=== PATIENT | male | born 1970 | race Caucasian/White ===

== ENCOUNTER 2022-03-26 10:55 | Outpatient (REF) | payer OTHER, SELFPAY ==
[2022-03-26 12:38] LABS: Hematocrit 43.2 % (42.0-52.0); Hemoglobin 14.9 g/dl (14.0-18.0); Mean Corpuscular HGB Conc 34.5 g/dl (31.0-36.0); Mean Corpuscular Hemoglobin 30.5 pg (27.0-33.0); Mean Corpuscular Volume 88.5 fL (80.0-98.0); Mean Platelet Volume 9.4 fL (9.4-12.4); Platelet Count 185 X10*3/uL (160-400); Red Blood Count 4.88 X10*6/uL (4.60-5.80); Red Cell Distribution Width 12.7 % (11.0-16.0); White Blood Count 5.6 X10*3/uL (4.8-10.8)
[2022-03-26 13:01] LABS: Alanine Aminotransferase 28 U/L (0-40); Albumin Level 4.5 g/dL (3.5-5.0); Alkaline Phosphatase 79 U/L (39-117); Anion Gap 12 (12-20); Aspartate Amino Transferase 28 U/L (5-37); Bilirubin Total 0.8 mg/dL (0.0-1.0); Blood Urea Nitrogen 13 mg/dL (9-16); Calcium 10.2 mg/dL (8.4-10.2); Carbon Dioxide 28 mmol/L (22-29); Chloride 102 mmol/L (96-108); Estimated Glomerular Filt Rate > 60; Glucose Random 109 mg/dL (60-115); Potassium 5.1 mmol/L (3.3-5.1); Sodium 137 mmol/L (135-145); Total Protein 7.5 g/dL (6.5-8.0)
== END 2022-03-26 10:56 | disposition home or self-care (01) ==
LOC: HO.LAB 10:55
PROVIDERS: PCP Nurse Practitioner Family; Referring Provider Nurse Practitioner Family; Visit Provider Nurse Practitioner Family
DX: K21.9 Gastro-esophageal reflux disease without esophagitis (principal); Z12.11 Encounter for screening for malignant neoplasm of colon
CPT/HCPCS: 36415; 80053; 85027

== ENCOUNTER 2022-11-26 07:20 | Day surgery (SDC) | payer OTHER, SELFPAY ==
--- NOTE | 2022-11-25 09:42 | HO.ANESPROP2 ---
HPI - Anesthesia Eval Consult details Narrative: 52yo M for Colonoscopy PMFSH Active Problems Active Problems: All Active Problems (Updated 11/19/22 @ 12:49 by Mima Go RN) Screening for colon cancer (Acute) Physical exam (Acute) HTN (hypertension) (Acute) Past Medical History Medical History Acid reflux HTN (hypertension) Surgical History Surgical History History of prostate surgery Hx of lumbar discectomy Social History Social History Housing: House Patient Tobacco Use Status: Never used Tobacco e-Cigarette/Vaping Use: Never Used Second Hand Smoke Exposure: No service: No Current occupational status: employed Current occupation: [employer] Current occupational exposures/hazards: Yes Cognitive needs: No Hearing needs: No Vision needs: No Meds Allergies Allergy/AdvReac Type Severity Reaction Status Date / Time No Known Allergies Allergy Verified 06/01/22 12:26 Home Medications Medication Instructions Recorded Confirmed Last Taken Type sildenafil 25 mg tablet 25 mg PO DAILY PRN Erectile 12/07/21 11/26/22 Unknown History Dysfunction Exam Exam Date and Time: November 25, 2022 0942 Assessment and Plan Assessment Anesthesia Assessment: Chart Reviewed
[2022-11-26 07:29] VITALS: BMI 26.8
[2022-11-26 07:33] VITALS: BP 141/89; PULSE 82; RESP 16; TEMP 36.8; O2SAT 97
[2022-11-26] MEDS: Lactated Ringers 1,000 ML 100 ML IVCONT (07:47)
--- NOTE | 2022-11-26 08:51 | MHC.SHP ---
Pre-Procedural Eval Section A Date of Service: 11/26/22 Section B Chief Complaint: screening Details of Present Illness: 52 y.o M at average risk for CRC here for index screening colo. Relevant Family History (Specify if Yes): No Present Medications: see Short Stay Collaborative assessment Medical History: No relevant PMH History of Previous Operations: No relevant previous surgery Allergies: Allergies Allergy/AdvReac Type Severity Reaction Status Date / Time No Known Allergies Allergy Verified 06/01/22 12:26 Review of Systems Review of Systems Comment: 10 point ROS negative except as noted above Exam Exam Comment: Gen appear: No acute distress, well nourished HEENT: no icterus Chest: No overt resp distress Abd: soft, nontender, nondistended Psych: Stable affect, answering questions appropriately Neuro: A/Ox3 noted to move all extremities spontaneously Ext: no peripheral edema Plan Diagnosis/Plan: Unchanged I have reviewed the history and physical and performed a pertinent physical examination on my patient. No changes have occurred unless specified. Time Spent With Patient Time: Total time managing care of this patient today ____ minutes.
--- NOTE | 2022-11-26 08:53 | P.OP_ITS ---
Operative Note Operative Note Date of Service: 11/26/22 Narrative: Procedure: Colonoscopy Indication: Screening Endoscopist: Alisia Veloz MD Anesthesia Provider: Dr Yoanna Griggs Anesthesia type: MAC Instrument: Olympus [id number]-H190L Consent: Indication, risks vs benefits, and alternatives were discussed with the patient who gave written informed consent to proceed. EKG, pulse, pulse oximetry and blood pressure were monitored throughout the procedure. Please see anesthesia flowsheet. Procedure: The patient was brought to the procedure room and placed in the left lateral decubitus position. IV medications were administered by the anesthesia provider in attendance. A digital rectal exam was performed which was normal. The colonoscope was then inserted through the anus and advanced through the colon to the cecum at 80 cm. Appendiceal orifice and ileocecal valve were identified. Mucosa was carefully examined under high definition white light as the instrument was slowly withdrawn in a retrograde panoramic fashion. Retroflexion was performed in ascending colon and rectum. The procedure was not difficult. There were no immediate obvious complications. The quality of the prep was BBPS: 2+2+3 = adequate Withdrawal time 20 minutes. Limitations: No limitations. Findings: Mucosa: Normal to cecum. Protruding lesions: * 2 sessile polyp of size 2-4 mm in ascending colon. Cold snare polypectomy was performed. The polyps were completely removed and retrieved. * 1 sessile polyp of size 2 mm in transverse colon. Cold snare polypectomy was performed. The polyp was completely removed and retrieved. * 2 sessile polyp of size 4-6 mm in sigmoid colon. Cold snare polypectomy was performed. The polyps were completely removed and retrieved. * Medium internal hemorrhoids without stigmata of recent bleeding. Excavated lesions: * Few small mouthed diverticula in whole colon. Impression: 1. Normal colon mucosa 2. Total of 5 polyps removed from ascending, transverse, and sigmoid colon. 3. Internal hemorrhoids 4. Diverticulosis Recommendations: - Follow path results. - Repeat colonoscopy in 3 years if all polyps are adenomas or sessile serrated otherwise 5-7 years.
[2022-11-26 09:42] VITALS: BP 101/78; PULSE 76; RESP 18; TEMP 36.1; O2SAT 95
[2022-11-26 09:57] VITALS: BP 115/82; PULSE 62; RESP 16; TEMP 36.1; O2SAT 97
== END 2022-11-26 10:24 | disposition home or self-care (01) ==
PROVIDERS: PCP Nurse Practitioner Family; Visit Provider Internal Medicine
PROC: 0DJD8ZZ Inspection of Lower Intestinal Tract, Via Natural or Artificial Opening Endoscopic (ICD-10-PCS; CPT 45378; principal; 2022-11-26 08:30)
DX: Z12.11 Encounter for screening for malignant neoplasm of colon (principal); D12.2 Benign neoplasm of ascending colon; D12.3 Benign neoplasm of transverse colon; K63.5 Polyp of colon; K57.30 Diverticulosis of large intestine without perforation or abscess without bleeding; K64.8 Other hemorrhoids; K21.9 Gastro-esophageal reflux disease without esophagitis; I10 Essential (primary) hypertension; Z79.899 Other long term (current) drug therapy
CPT/HCPCS: 45385; 88305

== ENCOUNTER → 2022-12-10 07:39 | Outpatient (BNVA) | payer OTHER, SELFPAY | PROVIDERS: PCP Nurse Practitioner Family; Referring Provider Nurse Practitioner Family; Visit Provider Nurse Practitioner Family | DX: Z13.89 Encounter for screening for other disorder (principal) ==

== ENCOUNTER 2023-01-06 09:14 | Outpatient (REF) | payer OTHER, SELFPAY ==
[2023-01-08 07:53] LABS: Lyme Blot 2.84 index
[2023-01-12 09:34] LABS: Lyme Abs Screen POSITIVE
[2023-01-12 09:38] LABS: 18 KD (IgG) Band NON-REACTIVE; 23 KD (IgG) Band NON-REACTIVE; 23 KD (IgM) Band REACTIVE; 28 KD (IgG) Band NON-REACTIVE; 30 KD (IgG) Band NON-REACTIVE; 39 KD (IgM) Band NON-REACTIVE; 39KD (IgG) Band REACTIVE; 41 KD (IgM) Band NON-REACTIVE; 41KD (IgG) Band NON-REACTIVE; 45 KD (IgG) Band NON-REACTIVE; 58 KD (IgG) Band NON-REACTIVE; 66 KD (IgG) Band NON-REACTIVE; 93 KD (IgG) Band REACTIVE; Lyme IgG Blot Interp NEGATIVE (NEGATIVE); Lyme IgM Blot Interp NEGATIVE (NEGATIVE)
== END 2023-01-06 09:15 | disposition home or self-care (01) ==
LOC: HO.HMGCLDS 09:14
PROVIDERS: PCP Nurse Practitioner Family; Visit Provider Internal Medicine
DX: R76.8 Other specified abnormal immunological findings in serum (principal)
CPT/HCPCS: 36415; 86617; 86618

== ENCOUNTER 2023-01-18 15:02 | Outpatient (REF) | payer OTHER, SELFPAY ==
[2023-01-18 16:35] LABS: Mean Corpuscular HGB Conc 34.9 g/dl (31.0-36.0); Mean Corpuscular Hemoglobin 31.3 pg (27.0-33.0); Mean Corpuscular Volume 89.8 fL (80.0-98.0); Platelet Count 149 X10*3/uL (160-400); Red Blood Count 4.79 X10*6/uL (4.60-5.80); Red Cell Distribution Width 12.8 % (11.0-16.0); White Blood Count 3.7 X10*3/uL (4.8-10.8)
[2023-01-18 16:48] LABS: Alanine Aminotransferase 33 U/L (0-40); Albumin Level 4.5 g/dL (3.5-5.0); Alkaline Phosphatase 91 U/L (39-117); Anion Gap 14 (12-20); Aspartate Amino Transferase 34 U/L (5-37); Bilirubin Direct 0.3 mg/dL (0.0-0.5); Bilirubin Total 1.1 mg/dL (0.0-1.0); Blood Urea Nitrogen 13 mg/dL (9-16); Calcium 9.8 mg/dL (8.4-10.2); Carbon Dioxide 26 mmol/L (22-29); Chloride 104 mmol/L (96-108); Estimated Glomerular Filt Rate > 60; Glucose Random 103 mg/dL (60-115); Potassium 4.5 mmol/L (3.3-5.1); Sodium 139 mmol/L (135-145); Total Protein 7.4 g/dL (6.5-8.0)
[2023-01-18 17:07] LABS: Erythrocyte Sedimentation Rate 6 MM/HR (0-15)
== END 2023-01-18 15:03 | disposition home or self-care (01) ==
LOC: HO.HMGCLDS 15:02
PROVIDERS: PCP Nurse Practitioner Family; Visit Provider Internal Medicine
DX: M31.6 Other giant cell arteritis (principal)
CPT/HCPCS: 36415; 80048; 80076; 85027; 85652; 86140

== ENCOUNTER → 2023-01-25 07:14 | Outpatient (BNVA) | payer OTHER, SELFPAY | PROVIDERS: PCP Internal Medicine; Visit Provider Student in an Organized Health Care Education/Training Program | DX: Z13.89 Encounter for screening for other disorder (principal) ==

== ENCOUNTER 2023-01-25 08:31 | Outpatient (REF) | payer OTHER, SELFPAY ==
[2023-01-25 11:26] LABS: MANUAL DIFF FLAG NO
[2023-01-25 11:39] LABS: Appearance Urine Turbid; Color Urine Yellow; Glucose Urine UA Negative (Negative); Leukocyte Esterase Urine Negative (Negative); Nitrite Urine Negative (Negative); PH 5.5 (5.0-9.0); Specific Gravity - Urine 1.025 (1.005-1.025); Urine Blood Negative (Negative); Urine Ketones Negative (Negative); Urine Protein Negative (Neg-Trace)
[2023-01-25 11:40] LABS: Basophils Percent Auto 0.3 % (0-2); Eosinophils Percent Auto 0.2 % (0-4); Lymphocytes Absolute Auto 0.9 X10*3/uL (1.2-4.9); Monocytes Absolute Auto 0.5 X10*3/uL (0.1-1.2); White Blood Count 6.4 X10*3/uL (4.8-10.8)
[2023-01-25 11:42] LABS: Bacteria Urine None Seen (None Seen); Hyaline Casts Urine 0-2 /LPF (0-2); RBC Urine 0-2 /HPF (0-2); Squamous Epithelial Cell Urine 0-2 /HPF (0-2); WBC Urine 0-5 /HPF (0-5)
[2023-01-25 11:53] LABS: Alanine Aminotransferase 30 U/L (0-40); Albumin Level 4.1 g/dL (3.5-5.0); Alkaline Phosphatase 76 U/L (39-117); Anion Gap 11 (12-20); Aspartate Amino Transferase 22 U/L (5-37); Bilirubin Total 0.8 mg/dL (0.0-1.0); Blood Urea Nitrogen 21 mg/dL (9-16); C Reactive Protein < 0.10 mg/dL (< or = 0.50); Calcium 9.6 mg/dL (8.4-10.2); Carbon Dioxide 27 mmol/L (22-29); Chloride 107 mmol/L (96-108); Estimated Glomerular Filt Rate > 60; Glucose Random 105 mg/dL (60-115); Potassium 4.4 mmol/L (3.3-5.1); Rheumatoid Factor < 13.0 IU/mL (<15.0); Sodium 141 mmol/L (135-145); Total Protein 6.8 g/dL (6.5-8.0)
[2023-01-25 11:55] LABS: Estimated Average Glucose 114 mg/dL; Hemoglobin A1c % 5.6 %
[2023-01-25 12:24] LABS: Erythrocyte Sedimentation Rate 3 MM/HR (0-15)
[2023-01-25 12:32] LABS: Creatinine Urine 176.79 mg/dL; Total Protein Urine Random 17 mg/dL (<12)
[2023-01-25 14:23] LABS: HBc Num1 0.08 S/CO (0.00-0.79); HBsAGNum1 0.41 S/CO (0.00-0.99); Hepatitis A Antibody IgM 0.51 Index (0-0.79); Hepatitis B Core Antibody Nonreactive (Nonreactive); Hepatitis B Surface Antigen Negative (Negative); ~HepC Num1 0.13 S/CO (0.00-0.79); ~Hepatitis A Antibody IgM Nonreactive (Nonreactive); ~Hepatitis B Surface Antibody NONREACTIVE (Nonreactive); ~Hepatitis C Antibody Nonreactive (Nonreactive)
[2023-01-25 15:16] LABS: Hematocrit 41.2 % (42.0-52.0); Hemoglobin 14.4 g/dl (14.0-18.0); Imm Gran Abs Auto 0.09 X10*3/uL (0.00-0.03); Imm Gran Pct Auto 1.4 % (0.0-0.4); Lymphocytes Percent Auto 13.5 % (20-40); Mean Corpuscular Volume 88.6 fL (80.0-98.0); Mean Platelet Volume 10.2 fL (9.4-12.4); Monocytes Percent Auto 7.5 % (2-11); Neutrophils Percent Auto 77.1 % (45-73); Platelet Count 206 X10*3/uL (160-400); Red Blood Count 4.65 X10*6/uL (4.60-5.80)
[2023-01-26 22:33] LABS: Complement C3 104 mg/dL (82-185)
[2023-01-27 11:49] LABS: IgA 186 mg/dL (47-310); IgG 1157 mg/dL (600-1640); IgM 217 mg/dL (50-300)
[2023-01-27 13:58] LABS: Cyclic Citrullinated Peptide <16 UNITS
[2023-01-27 14:19] LABS: TS Negative Control Passed; TS Panel A 1; TS Panel B 0; TS Positive Control Passed; TSpotTB Negative (Negative)
[2023-01-28 08:53] LABS: Anti Nuclear Antibody Screen NEGATIVE (NEGATIVE)
[2023-01-28 18:44] LABS: Prot Elec - Albumin 4.6 g/dL (3.8-4.8); Prot Elec - Alpha1 0.3 g/dL (0.2-0.3); Prot Elec - Alpha2 0.6 g/dL (0.5-0.9); Prot Elec - Beta 1 0.4 g/dL (0.4-0.6); Prot Elec - Beta 2 0.3 g/dL (0.2-0.5); Prot Elec - Total Protein 7.2 g/dL (6.1-8.1)
[2023-01-29 14:59] LABS: DNAds, Crithidia Antibody Negative (Negative)
[2023-01-31 03:04] LABS: Angiotensin Converting Enzyme 11.7 U/L (9-67)
[2023-01-31 13:09] LABS: Anti DNA DS Antibody <1 IU/mL; Antibody to SS-A Antigen <1.0 NEG AI (<1.0 NEG); Antibody to SS-B Antigen <1.0 NEG AI (<1.0 NEG); Myeloperoxidase Antibody <1.0 AI; Proteinase 3 PR3 Antibodies <1.0 AI; SM/Ribonucleoprotein Ab <1.0 NEG AI (<1.0 NEG); Smith Protein <1.0 NEG AI (<1.0 NEG)
== END 2023-01-25 08:32 | disposition home or self-care (01) ==
LOC: HO.10HDL 08:31
PROVIDERS: Visit Provider Student in an Organized Health Care Education/Training Program
DX: Z11.7 Encounter for testing for latent tuberculosis infection (principal); Z13.1 Encounter for screening for diabetes mellitus; D86.9 Sarcoidosis, unspecified; M32.9 Systemic lupus erythematosus, unspecified; M06.9 Rheumatoid arthritis, unspecified; R51.9 Headache, unspecified; M31.6 Other giant cell arteritis
CPT/HCPCS: 36415; 80053; 81001; 82164; 82784; 83036; 84156; 84165; 85025; 85652; 86021; 86038; 86039; 86140; 86160; 86200; 86225; 86235; 86255; 86334; 86431; 86481; 86704; 86706; 86709; 86803; 87340

== ENCOUNTER 2023-01-27 08:46 | Day surgery (SDC) | payer OTHER, SELFPAY ==
[2023-01-27 09:00] VITALS: BMI 26.5
[2023-01-27 09:07] VITALS: BP 149/94; PULSE 71; RESP 16; TEMP 36.7; O2SAT 97
[2023-01-27] MEDS: Lactated Ringers 1,000 ML 50 ML IVCONT (09:18)
--- NOTE | 2023-01-27 10:55 | P.CONAN_ITS ---
HPI - Anesthesia Eval Consult details Narrative: 52 M for TAB PMFSH Active Problems Active Problems: All Active Problems (Updated 01/25/23 @ 15:00 by Damaso Cannon MD) Giant cell arteritis (Acute) Headache (Acute) Positive Lyme disease serology (Acute) Diverticulosis (Acute) Tubular adenoma (Acute) Screening for colon cancer (Acute) Physical exam (Acute) HTN (hypertension) (Acute) Past Medical History Medical History Acid reflux Diverticulosis HTN (hypertension) Tubular adenoma Family History Family History Brother Brain aneurysm Family history of problems with anesthesia: No Surgical History Surgical History History of prostate surgery Hx of lumbar discectomy History of Problems with Anesthesia: No Social History Social History Household Members: Spouse Household Members Other:: Daughter Housing: House Alcohol intake: current Alcohol intake frequency: holidays/special occasions only Patient Tobacco Use Status: Never used Tobacco e-Cigarette/Vaping Use: Never Used Second Hand Smoke Exposure: No Use of substances other than those prescribed or required for medical reasons: No Are you DNR?: No Advance Directives: No Advance Directives Information Provided: Yes Recently lost weight without trying: No Nutrition Risks: No Nutritional Risk service: No Current occupational status: employed Current occupation: [employer] Current occupational exposures/hazards: Yes Cognitive needs: No Hearing needs: No Vision needs: No Meds Allergies Allergy/AdvReac Type Severity Reaction Status Date / Time No Known Allergies Allergy Verified 01/25/23 13:05 Active Medications: Current Medications Lactated Ringer's (Lr) 1,000 mls @ 50 mls/hr IVCONT .Q20H MIKEY Last Admin: 01/27/23 09:18 Dose: 50 mls/hr Home Medications Medication Instructions Recorded Confirmed Last Taken Type sildenafil 25 mg tablet 25 mg PO DAILY PRN Erectile 12/07/21 01/27/23 Unknown History Dysfunction Exam Exam Date and Time: January 27, 2023 1055 Height,Weight and Vital Signs: Height 5 ft 10 in Weight 185 lb Last Vital Signs Temp 98.0 F 01/27/23 09:07 Pulse 71 01/27/23 09:07 Resp 16 01/27/23 09:07 BP 149/94 H 01/27/23 09:07 Pulse Ox 97 01/27/23 09:07 O2 Del Method 01/27/23 09:07 Airway Mallampati Class: II TM Dist: >3cm Neck ROM: Full Loose/Missing/Broken Teeth: No Assessment and Plan Assessment Anesthesia Assessment: Anesthesia Plan Discussed and Chart Reviewed Final Anesthetic Review Family History of Problems with Anesthesia: No History of Problems with Anesthesia: No NPO: Yes ASA Class: II Final Preanesthetic Review: No Changes in Pt Med Stat, Meds/Allgs Chart Reviewed, Consent Obtained/Reviewed and Anes Risks/Benef Reviewed Patient Risk: Low Procedure Risk: Low Anesthetic Plan Anesthetic Plan: MAC: Disposition: Standard PACU
--- NOTE | 2023-01-27 11:39 | MHC.SHP ---
Pre-Procedural Eval Section A Date of Service: 01/27/23 The patient is an INPATIENT: No Changes since office visit: Yes Patient answered all questions The History & Physical has been completed within 30 days and I have reviewed it.: Yes Section B Chief Complaint: Other giant cell arteritis Allergies: Allergies Allergy/AdvReac Type Severity Reaction Status Date / Time No Known Allergies Allergy Verified 01/25/23 13:05 Plan I have reviewed the history and physical and performed a pertinent physical examination on my patient. No changes have occurred unless specified. Time Spent With Patient Time: Total time managing care of this patient today ____ minutes.
--- NOTE | 2023-01-27 11:40 | W.PM.OPN ---
Operative Note Operative Note Date of Service: 01/27/23 Narrative: Operative note by [facility] Preoperative diagnosis: Giant cell arteritis Postoperative diagnosis: Same Procedure: Right temporal artery biopsy Surgeon:Damaso Cannon M.D. Armhole Presser: None Anesthesia: Local with sedation Specimens: 1 Drains: None Estimated blood loss: Minimal Indications: Very pleasant 52-year-old gentleman with history of temporal headaches and elevated ESR CRP now presents for right temporal artery biopsy. The patient has signed the informed consent after reviewing risks, complications, benefits, and alternatives previously discussed with the patient. The patient was given the opportunity to ask any additional questions or voice any concerns. All questions were answered to the patient's satisfaction. Procedure in detail: Patient was brought to the operating room prior to which a time-out was called for patient identification and site verification. Right temporal region was prepped and draped in the standard surgical fashion approximately a 3 cm incision was carried out anterior to the year. Um taken down through the skin subcu on to the fascial layer. On this was dissected with electrocautery. We were able to easily identify the temporal artery with dissection. Proximal and distal edges were ligated with 3-0 silk. Specimen was then removed. Adequate hemostasis was achieved. Wound was irrigated. Deep layer was reapproximated using 3-0 poly Sorb and finally skin with a 4-0 Monocryl. Exofin was used as a sterile dressing. This note is constructed using voice recognition software. While every effort has been made to ensure accuracy, premium card cancellation clerk errors may have been included. Thank you for allowing me to participate in the care of your patient. Yours sincerely, Damaso Cannon MD, FACS, R.P.V.I.
[2023-01-27 11:45] VITALS: BP 135/78; PULSE 62; RESP 18; TEMP 36.2; O2SAT 96
[2023-01-27 12:00] VITALS: BP 135/78; PULSE 59; RESP 16; O2SAT 97
[2023-01-27] MEDS: Acetaminophen 325 MG TABLET 975 MG PO (12:08)
[2023-01-27 12:15] VITALS: BP 135/83; PULSE 59; RESP 18; O2SAT 98
[2023-01-27 12:30] VITALS: BP 138/93; PULSE 63; RESP 20; TEMP 36.4; O2SAT 96
== END 2023-01-27 13:23 | disposition home or self-care (01) ==
PROVIDERS: PCP Nurse Practitioner Family; Visit Provider Surgery Vascular Surgery
PROC: (CPT 37609; principal; 2023-01-27 10:40)
DX: M31.6 Other giant cell arteritis (principal); R51.9 Headache, unspecified; R79.82 Elevated C-reactive protein (CRP); R70.0 Elevated erythrocyte sedimentation rate; I10 Essential (primary) hypertension; Z79.899 Other long term (current) drug therapy; Z79.52 Long term (current) use of systemic steroids
CPT/HCPCS: 37609; 88305; J0690; J2795; J3010

== ENCOUNTER 2023-02-23 08:39 | Outpatient (REF) | payer OTHER, SELFPAY ==
--- NOTE | ~2023-02-23 | MR_ITS ---
EXAMINATION: MR BRAIN WITHOUT AND WITH CONTRAST CLINICAL INFORMATION: Headache, right eye blurry vision, history of prostate cancer COMPARISON: None TECHNIQUE: Multiplanar multisequence MR imaging of the brain was obtained without and following the administration of 8.5 mL Gadavist intravenous contrast. FINDINGS: There is no acute infarct on diffusion-weighted imaging. There is no intracranial hemorrhage on iron-sensitive imaging. No extra-axial collection or mass effect/herniation. Normal parenchymal signal characteristics. No hydrocephalus. The ventricles are normal in morphology and size. No abnormal parenchymal or extra-axial enhancement. The major flow voids at the skull base are preserved. The midline structures are normal. The cerebellar tonsils are normally positioned. The craniocervical junction is normal. Degenerative changes of the upper cervical spine. Marrow signal is within normal limits. The visualized soft tissues are without significant abnormality. Mild left maxillary sinus mucosal thickening. MR/MR head/brain wo/w con IMPRESSION: Unremarkable contrast enhanced MRI of the brain.
== END 2023-02-23 08:40 | disposition home or self-care (01) ==
LOC: HO.MRI 08:39
PROVIDERS: PCP Nurse Practitioner Family; Visit Provider Student in an Organized Health Care Education/Training Program
DX: R51.9 Headache, unspecified (principal)
CPT/HCPCS: 70553; A9585

== ENCOUNTER → 2023-03-02 12:50 | Outpatient (BNVA) | payer OTHER, SELFPAY | PROVIDERS: PCP Nurse Practitioner Family; Visit Provider Student in an Organized Health Care Education/Training Program | DX: Z13.89 Encounter for screening for other disorder (principal) ==

== ENCOUNTER 2023-06-01 07:59 | Outpatient (REF) | payer OTHER, SELFPAY ==
[2023-06-03 11:58] LABS: Immunoglobulin G Subclass 1 468 mg/dL (382-929); Immunoglobulin G Subclass 2 305 mg/dL (241-700); Immunoglobulin G Subclass 3 39 mg/dL (22-178); Immunoglobulin G Subclass 4 108.2 mg/dL (4-86); Immunoglobulin G Total 936 mg/dL (600-1640)
[2023-06-06 21:33] LABS: Lysozyme, Serum 6.1 mcg/mL (5.0-11.0)
== END 2023-06-01 08:00 | disposition home or self-care (01) ==
LOC: HO.HMGCLDS 07:59
PROVIDERS: Student in an Organized Health Care Education/Training Program; PCP Nurse Practitioner Family; Visit Provider Nurse Practitioner Family
DX: D89.89 Other specified disorders involving the immune mechanism, not elsewhere classified (principal); D86.9 Sarcoidosis, unspecified; I10 Essential (primary) hypertension
CPT/HCPCS: 36415; 80053; 80061; 81003; 82784; 84443; 85025; 85549

== ENCOUNTER 2023-07-07 09:13 | Outpatient (AMB) | payer OTHER, SELFPAY ==
--- NOTE | 2023-07-07 09:18 | MHC.PC.OV ---
Vital Signs 07/07/23 09:20 Height 5 ft 10 in Weight 193 lb 6 oz BMI 27.7 BP 130/78 Blood Pressure Location Lt brachial Position Sitting Pulse 78 Pulse Source Pulse Oximeter Pulse Oximetry (%) 98 Oxygen Delivery Method Room Air Intake Visit Reasons: Transfer Dr Bryant/ [facility] Intake Note: Patient is here today for transfer of care from Dr Bryant. Requesting PE Surgical Aide Required: No Ibm Bpm Developer: Not Required per policy Accompanied by: Self / Same As Patient Allergies No Known Allergies Allergy (Verified 07/24/23 19:54) Medication List - Last Reconciled 07/24/23 by Owen Modi MD cholecalciferol (vitamin D3) 125 mcg PO DAILY lisinopril 5 mg PO DAILY 90 days rosuvastatin (Crestor) 5 mg PO DAILY Tobacco use date assessed: 07/07/23 Dental Screening Dental Screen Date: 07/07/23 Did you have a dental visit in the last 12 months?: Yes Did you have a dental problem in the last 6 months where you did not have access to dental care?: No Was dental information given to patient?: Patient has dentist HPI Transfer Dr Bryant/ [facility] HPI Details 52-year-old male presents to the office to establish care. He is transferring care from another primary care provider in this group. At the walk-in I had diagnosed him with giant cell arteritis. Patient received a temporal artery biopsy, it was not conclusive. Currently on no medications. PENDING SALE TO [facility] Medical History Acid reflux Diverticulosis HTN (hypertension) Tubular adenoma Surgical History History of prostate surgery Hx of lumbar discectomy Family History Brother Brain aneurysm Social History (Updated 07/07/23 @ 09:26 by SHAILESH Corral) Household Members: Spouse Household Members Other:: Daughter Housing: House Alcohol intake: current Alcohol intake frequency: a few times a month Alcohol type: beer Patient Tobacco Use Status: Never used Tobacco e-Cigarette/Vaping Use: Never Used Second Hand Smoke Exposure: No service: No Current occupational status: employed Current occupation: [employer] Current occupational exposures/hazards: Yes Cognitive needs: No Hearing needs: No Vision needs: Yes (glasses) Questionnaire PHQ-9 Over the last 2 weeks, how often have you been bothered by any of the following problems? 1. Little interest or pleasure in doing things: not at all 2. Feeling down, depressed, or hopeless: not at all 3. Trouble falling or staying asleep, or sleeping too much: not at all 4. Feeling tired or having little energy: not at all 5. Poor appetite or overeating: not at all 6. Feeling bad about yourself - or that you are a failure or have let yourself or your family down: not at all 7. Trouble concentrating on things, such as reading the newspaper or watching television: not at all 8. Moving or speaking so slowly that other people could have noticed. Or the opposite - being so fidgety or restless that you have been moving around a lot more than usual: not at all 9. Thoughts that you would be better off or of hurting yourself in some way: not at all Total score: 0 Depression Screening Interpretation: Negative Source: Developed by Drs. Sylvester Rosado, Ofelia Mary, Norman Fry and colleagues, with an educational vasquez from [employer]. Thrive Questionnaire Date Thrive assessed: 07/07/23 I am a: Patient What is your living situation today?: I have a steady place to live Within the past 12 months, did the food you bought not last and you didn't have the money to get more?: Never true Within the past 12 months, did you worry whether your food would run out before you got money to buy more?: Never true Do you have trouble paying for medicines?: No Do you have trouble getting transportation to medical appointments?: No Do you have trouble paying your heating and electricity bill?: No Do you have trouble taking care of your child, family member or friend?: No Do you have trouble with day-to-day activities such as bathing, preparing meals, shopping, managing finances, etc.?: No Are you currently unemployed and looking for a job?: No Are you interested in more education?: No Currently or been in a relationship where the following occur: no concerns reported AUDIT C Alcohol Use Questionnaire (AUDIT-C) 1. How often do you have a drink containing alcohol?: Monthly or less 2. How many drinks containing alcohol do you have on a typical day when you are drinking?: 1 or 2 Total Score: 1 FRANNIE-7 AMB Questionnaire FRANNIE-7 Date FRANNIE - 7 assessed: 07/07/23 Feeling nervous, anxious, or on edge: 0 = Not at all Not being able to stop or control worryin = Not at all Worrying too much about different things: 0 = Not at all Trouble relaxin = Not at all Being so restless that it is hard to sit still: 0 = Not at all Becoming easily annoyed or irritable: 0 = Not at all Feeling afraid as if something awful might happen: 0 = Not at all Total FRANNIE-7 score (0-4 normal; 5-9 mild; 10-14 moderate; 15-21 severe): 0 Source: Developed by Drs. Sylvester Rosado, Ofelia Mary, Norman Fry and colleagues, with an educational vsaquez from [employer]. Physical exam (Primary Care) Vital Signs: Last Vital Signs Pulse 78 07/07/23 09:20 BP 130/78 07/07/23 09:20 Pulse Ox 98 07/07/23 09:20 Oxygen Delivery Method Room Air 07/07/23 09:20 BMI result Body Mass Index 27.7 Tobacco/Smoking Status: Tobacco use Status Tobacco use date assessed 07/07/23 07/07/23 09:20 Patient Tobacco Use Status Never used Tobacco 07/07/23 09:26 e-Cigarette/Vaping Use Never Used 07/07/23 09:26 PHQ-9: PHQ-9 Score PHQ-9: Total score 0 07/07/23 09:20 Depression Screening Interpretation: Negative Thrive Assessment: Date of Thrive Assessment Date Thrive assessed 07/07/23 07/07/23 09:20 Currently or been in a relationship where the following occur: no concerns reported Const General: cooperative, healthy appearing and comfortable HENMT Head: Yes normal to inspection and Yes atraumatic Eyes General: appearance normal, both eyes and all related structures Neck Neck: Yes normal visual inspection and Yes full ROM Chest Chest palpation & inspection: normal inspection of the chest Resp Effort & Inspection: normal respiratory effort Auscultation: clear to auscultation bilaterally Cardio Jugular venous distension: no JVD Palpation: normal PMI Rate: regular rate Heart sounds: S1 normal heart sound present and S2 normal heart sound present GI Palpation (GI): Soft to palpation and No hepatosplenomegaly present Extrem General: Yes normal to inspection and Yes full ROM Assessment and Plan Assessment & Plan (1) Giant cell arteritis: Code(s): M31.6 - Other giant cell arteritis Plan: This condition has resolved. Reassurance. Coding Level of Care Code Est Pt Level 3 (44694) Diagnoses Giant cell arteritis M31.6
[2023-07-07 09:20] VITALS: BP 130/78; PULSE 78; O2SAT 98; BMI 27.7
== END 2023-07-07 11:16 | disposition home or self-care (01) ==
PROVIDERS: PCP Nurse Practitioner Family; Visit Provider Internal Medicine
DX: M31.6 Other giant cell arteritis (principal)
CPT/HCPCS: 99213

== ENCOUNTER 2024-02-08 14:47 | Outpatient (AMB) | payer OTHER, SELFPAY ==
--- NOTE | 2024-02-08 14:50 | MHC.PC.OV ---
Vital Signs 02/08/24 14:53 02/08/24 14:57 Height 5 ft 10 in Weight 193 lb 4 oz BMI 27.7 BP 160/100 H 140/98 H Blood Pressure Location Lt brachial Lt brachial Position Sitting Sitting Pulse 82 Pulse Source Pulse Oximeter Pulse Oximetry (%) 97 Oxygen Delivery Method Room Air Intake Visit Reasons: Pain and numbness left arm Intake Note: Patient is here today for pain and numbness in left arm ad shoulder blade Shift Lab Technician Required: No Manager Of Data: Not Required per policy Accompanied by: Self / Same As Patient Allergies No Known Allergies Allergy (Verified 02/08/24 15:47) Medication List - Last Reconciled 02/08/24 by Owen Modi MD cholecalciferol (vitamin D3) 125 mcg PO DAILY cyclobenzaprine 10 mg PO BEDTIME lisinopril 10 mg PO DAILY meloxicam 15 mg PO DAILY prednisone 60 mg (3 x 20 mg) PO DAILY rosuvastatin (Crestor) 5 mg PO DAILY Tobacco use date assessed: 02/08/24 Dental Screening Dental Screen Date: 02/08/24 Did you have a dental visit in the last 12 months?: Yes Did you have a dental problem in the last 6 months where you did not have access to dental care?: No Was dental information given to patient?: Patient has dentist HPI Pain and numbness left arm HPI Details 53-year-old male presents to the office for a sick visit. Patient is reporting left shoulder pain for the past few weeks. He was working on his daughter's basement a few weeks ago. He has been having pain behind the left scapular area radiating into the arm. For the past 2 days he has been having numbness in the left arm and forearm extending up to the 3 digits of the hand. Able to do all activities of daily living. Has also noticed his blood pressure to be elevated. Reports no history of headaches or blurred vision. [facility] Medical History Acid reflux Diverticulosis HTN (hypertension) Tubular adenoma Surgical History History of prostate surgery Hx of lumbar discectomy Family History Brother Brain aneurysm Social History Household Members: Spouse Household Members Other:: Daughter Housing: House Alcohol intake: current Alcohol intake frequency: a few times a month Alcohol type: beer Comment: tylenol given Patient Tobacco Use Status: Never used Tobacco e-Cigarette/Vaping Use: Never Used Second Hand Smoke Exposure: No service: No Current occupational status: employed Current occupation: [employer] Current occupational exposures/hazards: Yes Cognitive needs: No Hearing needs: No Vision needs: Yes (glasses) Questionnaire PHQ-9 Over the last 2 weeks, how often have you been bothered by any of the following problems? 1. Little interest or pleasure in doing things: not at all 2. Feeling down, depressed, or hopeless: not at all 3. Trouble falling or staying asleep, or sleeping too much: not at all 4. Feeling tired or having little energy: not at all 5. Poor appetite or overeating: not at all 6. Feeling bad about yourself - or that you are a failure or have let yourself or your family down: not at all 7. Trouble concentrating on things, such as reading the newspaper or watching television: not at all 8. Moving or speaking so slowly that other people could have noticed. Or the opposite - being so fidgety or restless that you have been moving around a lot more than usual: not at all 9. Thoughts that you would be better off or of hurting yourself in some way: not at all Total score: 0 Depression Screening Interpretation: Negative Depression Screening Done: Yes Source: Developed by Drs. Sylvester Rosado, Ofelia Mary, Norman Fry and colleagues, with an educational vasquez from [employer] - is now [employer]. Thrive Questionnaire Date Thrive assessed: 02/08/24 I am a: Patient What is your living situation today?: I have a steady place to live Within the past 12 months, did the food you bought not last and you didn't have the money to get more?: Never true Within the past 12 months, did you worry whether your food would run out before you got money to buy more?: Never true Do you have trouble paying for medicines?: No Do you have trouble getting transportation to medical appointments?: No Do you have trouble paying your heating and electricity bill?: No Do you have trouble taking care of your child, family member or friend?: No Do you have trouble with day-to-day activities such as bathing, preparing meals, shopping, managing finances, etc.?: No Are you currently unemployed and looking for a job?: No Are you interested in more education?: No Currently or been in a relationship where the following occur: no concerns reported THRIVE Score: 0 AUDIT C Alcohol Use Questionnaire (AUDIT-C) 1. How often do you have a drink containing alcohol?: Monthly or less 2. How many drinks containing alcohol do you have on a typical day when you are drinking?: 1 or 2 Total Score: 1 FRANNIE-7 AMB Questionnaire FRANNIE-7 Date FRANNIE - 7 assessed: 02/08/24 Feeling nervous, anxious, or on edge: 0 = Not at all Not being able to stop or control worryin = Not at all Worrying too much about different things: 0 = Not at all Trouble relaxin = Not at all Being so restless that it is hard to sit still: 0 = Not at all Becoming easily annoyed or irritable: 0 = Not at all Feeling afraid as if something awful might happen: 0 = Not at all Total FRANNIE-7 score (0-4 normal; 5-9 mild; 10-14 moderate; 15-21 severe): 0 Source: Developed by Drs. Sylvester Rosado, Ofelia Mary, Norman Fry and colleagues, with an educational vasquez from [employer] - is now [employer]. Physical exam (Primary Care) Vital Signs: Last Vital Signs Pulse 82 02/08/24 14:53 BP 140/98 H 02/08/24 14:57 Pulse Ox 97 02/08/24 14:53 Oxygen Delivery Method Room Air 02/08/24 14:53 Care Plan Goal for BP management: Elevated blood pressure noted Next steps: . Lisinopril dosage increased to 10 mg a day. BMI result Body Mass Index 27.7 Tobacco/Smoking Status: Tobacco use Status Tobacco use date assessed 02/08/24 02/08/24 14:58 Patient Tobacco Use Status Never used Tobacco 02/08/24 14:58 e-Cigarette/Vaping Use Never Used 02/08/24 14:58 PHQ-9: PHQ-9 Score PHQ-9: Total score 0 02/08/24 14:58 Depression Screening Interpretation: Negative Thrive Assessment: Date of Thrive Assessment Date Thrive assessed 02/08/24 02/08/24 14:58 Currently or been in a relationship where the following occur: no concerns reported Const General: cooperative and healthy appearing Nutritional Appearance: well nourished Orientation/consciousness: patient oriented x3 Limitations: no limitations HENMT Head: Yes normal to inspection Eyes General: appearance normal, both eyes and all related structures Neck Neck: Yes normal visual inspection Chest Chest palpation & inspection: normal palpation of entire chest wall Resp Effort & Inspection: normal respiratory effort Back/Spine/Pelvis Other: Upper back: Muscles around the scapula on the left side are tense. Neuro General: patient oriented x3 Assessment and Plan Assessment & Plan (1) Sprain of left shoulder: Code(s): S43.402A - Unspecified sprain of left shoulder joint, initial encounter Plan: Prednisone, meloxicam and cyclobenzaprine called in. Physical therapy has been ordered. If symptoms do not improve to follow-up here. (2) HTN (hypertension): Code(s): I10 - Essential (primary) hypertension Plan: Lisinopril dosage has been increased to 10 mg once a day. If symptoms do not improve to follow-up here. Orders: Orders PT Evaluation and Treatment Today S43.402A - Unspecified sprain of left shoulder joint, initial encounter Medications: New prednisone 60 mg (3 x 20 mg) PO DAILY 9 tabs 0RF lisinopril 10 mg PO DAILY 90 tabs 1RF meloxicam 15 mg PO DAILY 14 tabs 0RF cyclobenzaprine 10 mg PO BEDTIME 14 tabs 0RF Coding Level of Care Code Est Pt Level 4 (15016) Diagnoses Sprain of left shoulder S43.402A HTN (hypertension) I10
[2024-02-08 14:53] VITALS: BP 160/100; PULSE 82; O2SAT 97; BMI 27.7
[2024-02-08 14:57] VITALS: BP 140/98
== END 2024-02-08 15:44 | disposition home or self-care (01) ==
PROVIDERS: PCP Internal Medicine; Visit Provider Internal Medicine
DX: S43.402A Unspecified sprain of left shoulder joint, initial encounter (principal); I10 Essential (primary) hypertension
CPT/HCPCS: 99214

== ENCOUNTER 2024-02-16 11:08 | Outpatient (AMB) | payer OTHER, SELFPAY ==
[2024-02-16 11:34] VITALS: BP 142/94; PULSE 75; O2SAT 96; BMI 27.8
--- NOTE | 2024-02-16 11:34 | A.OFFPC_ITS ---
Vital Signs 02/16/24 11:34 Height 5 ft 10 in Weight 194 lb BMI 27.8 BP 142/94 H Blood Pressure Location Lt brachial Position Sitting Pulse 75 Pulse Source Pulse Oximeter Pulse Oximetry (%) 96 Oxygen Delivery Method Room Air Intake Visit Reasons: numbness/pain booked per Radiologist Chief Of Breast Imaging Required: No Store Team Member: Not Required per policy Accompanied by: Self / Same As Patient Allergies No Known Allergies Allergy (Verified 02/17/24 08:42) Medication List - Last Reconciled 02/17/24 by Owen Modi MD cholecalciferol (vitamin D3) 125 mcg PO DAILY cyclobenzaprine 10 mg PO BEDTIME lisinopril 10 mg PO DAILY meloxicam 15 mg PO DAILY prednisone 60 mg (3 x 20 mg) PO DAILY rosuvastatin (Crestor) 5 mg PO DAILY Tobacco use date assessed: 02/08/24 Dental Screening Dental Screen Date: 02/16/24 Did you have a dental visit in the last 12 months?: Yes Did you have a dental problem in the last 6 months where you did not have access to dental care?: No Was dental information given to patient?: Patient has dentist HPI numbness/pain booked per HPI Details 53-year-old male presents to the office for a follow-up visit. Patient was seen last week for symptoms of pain in the left shoulder and numbness in the left arm. He was started on meloxicam, cyclobenzaprine and prednisone. Patient had some relief while he was on the prednisone but his symptoms are persisting. Continues to have numbness in the left arm and especially in the 3 fingers of the hand. Pain just next to the left of the scapula. Able to move his arm in all directions. However this elicits pain. [facility] Medical History Acid reflux Diverticulosis HTN (hypertension) Tubular adenoma Surgical History History of prostate surgery Hx of lumbar discectomy Family History Brother Brain aneurysm Social History Household Members: Spouse Household Members Other:: Daughter Housing: House Alcohol intake: current Alcohol intake frequency: a few times a month Alcohol type: beer Comment: tylenol given Patient Tobacco Use Status: Never used Tobacco e-Cigarette/Vaping Use: Never Used Second Hand Smoke Exposure: No service: No Current occupational status: employed Current occupation: [employer] Current occupational exposures/hazards: Yes Cognitive needs: No Hearing needs: No Vision needs: Yes (glasses) Questionnaire Thrive Questionnaire Date Thrive assessed: 02/08/24 FRANNIE-7 AMB Questionnaire FRANNIE-7 Date FRANNIE - 7 assessed: 02/08/24 Source: Developed by Drs. Sylvester Rosado, Ofelia Mary, Norman Fry and colleagues, with an educational vasquez from [employer]. Physical exam (Primary Care) Vital Signs: Last Vital Signs Pulse 75 02/16/24 11:34 BP 142/94 H 02/16/24 11:34 Pulse Ox 96 02/16/24 11:34 Oxygen Delivery Method Room Air 02/16/24 11:34 BMI result Body Mass Index 27.8 Tobacco/Smoking Status: Tobacco use Status Tobacco use date assessed 02/08/24 02/16/24 11:35 Patient Tobacco Use Status Never used Tobacco 02/16/24 11:35 e-Cigarette/Vaping Use Never Used 02/16/24 11:35 Thrive Assessment: Date of Thrive Assessment Date Thrive assessed 02/08/24 02/16/24 11:35 Extrem Other: Back: No spinal tenderness or paraspinal spasm. Upper back: Discomfort along the edges of the scapula on the left side. Left arm: Full range of motion with discomfort. Neuro exam: Full motor strength in the left arm,forearm and hand. Music Mixer is normal. Assessment and Plan Assessment & Plan (1) Sprain of left shoulder: Code(s): S43.402A - Unspecified sprain of left shoulder joint, initial encounter Plan X-ray of the chest and left shoulder has been requested. Prednisone at 10 mg will be continued. MRI of the left shoulder will be requested. Orthopedic consult for possible steroid injection to be considered. Orders: Orders XR chest 2V 02/16/24 M54.9 - Dorsalgia, unspecified Coding Level of Care Code Est Pt Level 4 (09491) Diagnoses Sprain of left shoulder S43.402A
== END 2024-02-16 13:25 | disposition home or self-care (01) ==
PROVIDERS: PCP Internal Medicine; Visit Provider Internal Medicine
DX: S43.402A Unspecified sprain of left shoulder joint, initial encounter (principal)
CPT/HCPCS: 99214

== ENCOUNTER 2024-02-16 12:05 | Outpatient (REF) | payer OTHER, SELFPAY ==
--- NOTE | ~2024-02-16 | XR_ITS ---
EXAM: XR LEFT SHOULDER XR CHEST CLINICAL INFORMATION: Back pain. Left SC joint seen on CXR. COMPARISON: None. TECHNIQUE: PA and lateral views of the chest. 4 views of the left shoulder. FINDINGS: CHEST: Mild S-shaped thoracolumbar scoliosis with mild multilevel degenerative changes. Lung volumes are low. There is no gross pneumothorax. Heart size is normal. No pleural effusion. No gross focal consolidation to suggest pneumonia. LEFT SHOULDER: Acromioclavicular joint measures 10 mm in width, borderline widened, with mild hypertrophic change. Glenohumeral alignment is preserved. Small sclerotic foci overlying the humeral head, possibly representing bone islands. Mild irregularity with sclerotic foci in the soft tissues along the proximal shaft of the humerus. XR/XR chest 2V IMPRESSION: 1. No evidence of pneumonia. 2. Degenerative changes in the left shoulder as detailed above. Mild irregularity with sclerotic foci in the soft tissues along the proximal shaft of the humerus. Dedicated views of the humerus recommended for further evaluation.
--- NOTE | ~2024-02-16 | XR_ITS ---
EXAM: XR LEFT SHOULDER XR CHEST CLINICAL INFORMATION: Back pain. Left SC joint seen on CXR. COMPARISON: None. TECHNIQUE: PA and lateral views of the chest. 4 views of the left shoulder. FINDINGS: CHEST: Mild S-shaped thoracolumbar scoliosis with mild multilevel degenerative changes. Lung volumes are low. There is no gross pneumothorax. Heart size is normal. No pleural effusion. No gross focal consolidation to suggest pneumonia. LEFT SHOULDER: Acromioclavicular joint measures 10 mm in width, borderline widened, with mild hypertrophic change. Glenohumeral alignment is preserved. Small sclerotic foci overlying the humeral head, possibly representing bone islands. Mild irregularity with sclerotic foci in the soft tissues along the proximal shaft of the humerus. XR/XR shoulder LT min 2V IMPRESSION: 1. No evidence of pneumonia. 2. Degenerative changes in the left shoulder as detailed above. Mild irregularity with sclerotic foci in the soft tissues along the proximal shaft of the humerus. Dedicated views of the humerus recommended for further evaluation.
== END 2024-02-16 12:06 | disposition home or self-care (01) ==
LOC: HO.XRAY 12:05
PROVIDERS: PCP Internal Medicine; Visit Provider Internal Medicine
DX: M54.9 Dorsalgia, unspecified (principal); M25.512 Pain in left shoulder
CPT/HCPCS: 71046; 73030

== ENCOUNTER 2024-02-19 10:32 | Emergency (ER) | payer OTHER, SELFPAY ==
--- NOTE | ~2024-02-19 | XR_ITS ---
EXAMINATION: XR CHEST CLINICAL INFORMATION: Chest pain COMPARISON: Chest radiograph from 02/16/2024 TECHNIQUE: 2 views of the chest were obtained. FINDINGS: No focal consolidation. No pneumothorax. Trachea is midline. Cardiac mediastinal silhouette is not enlarged. Osseous structures are intact. Soft tissues are unremarkable. XR/XR chest 2V IMPRESSION: No acute cardiopulmonary process.
--- NOTE | 2024-02-19 10:36 | ECG_ITS ---
Test Reason : CP Blood Pressure : / mmHG Vent. Rate : 091 BPM Atrial Rate : 091 BPM P-R Int : 142 ms QRS Dur : 094 ms QT Int : 382 ms P-R-T Axes : 068 051 063 degrees QTc Int : 469 ms Poor data quality Normal sinus rhythm Normal ECG No previous ECGs available Referred By: Guadalupe Jimenez Electronically Signed By:Solo Callahan
[2024-02-19 10:45] VITALS: BP 182/94; PULSE 81; RESP 30; TEMP 36.8; O2SAT 100; BMI 28.5
--- NOTE | 2024-02-19 11:01 | PC.NURSE ---
patient a&ox3, iv inserted, labs drawn, nasal swab obtained, pt c/o lt arm burning pain radiating into chest/back, pt seen earlier in the week and dx with pinched nerve, pt states today the pain worsened as he went to shower. currently pt on cardiac cath tech-nsr, pt has hx htn and is notably hypertensive with pain of 8/10 to his left arm. pt bilateral arms he is making stiff and pt is hyperventilating, this nurse coached the patient to deep breathe through nose and out his mouth and to relax bilateral arms, at bedside assisting with patient. patient was asked about any history of anxiety which he states he only had after the of his children when they were little and nothing recent. call castrejon within reach, will continue to monitor
[2024-02-19 11:02] LABS: MANUAL DIFF FLAG NO
[2024-02-19 11:04] LABS: Basophils Percent Auto 0.3 % (0-2); Eosinophils Percent Auto 0.3 % (0-4); Hematocrit 41.2 % (42.0-52.0); Hemoglobin 14.8 g/dl (14.0-18.0); Imm Gran Abs Auto 0.02 X10*3/uL (0.00-0.03); Imm Gran Pct Auto 0.3 % (0.0-0.4); Lymphocytes Percent Auto 16.3 % (20-40); Mean Corpuscular HGB Conc 35.9 g/dl (31.0-36.0); Mean Corpuscular Hemoglobin 31.8 pg (27.0-33.0); Mean Corpuscular Volume 88.6 fL (80.0-98.0); Mean Platelet Volume 9.2 fL (9.4-12.4); Monocytes Absolute Auto 0.5 X10*3/uL (0.1-1.2); Monocytes Percent Auto 7.9 % (2-11); Neutrophils Absolute Auto 4.6 x10*3/uL (2.0-8.3); Neutrophils Percent Auto 74.9 % (45-73); Platelet Count 151 X10*3/uL (160-400); Red Blood Count 4.65 X10*6/uL (4.60-5.80); Red Cell Distribution Width 12.3 % (11.0-16.0); White Blood Count 6.2 X10*3/uL (4.8-10.8)
[2024-02-19 11:11] LABS: INTERNATIONAL NORM RATIO 0.9 (0.9-1.1); Prothrombin Time 10.9 SEC (11.1-13.3)
[2024-02-19 11:14] LABS: Partial Thromboplastin Time 25.3 SEC (26.0-36.8)
[2024-02-19 11:20] LABS: Alanine Aminotransferase 47 U/L (0-40); Albumin Level 4.2 g/dL (3.5-5.0); Alkaline Phosphatase 66 U/L (39-117); Anion Gap 17 (12-20); Aspartate Amino Transferase 45 U/L (5-37); Bilirubin Total 1.5 mg/dL (0.0-1.0); Blood Urea Nitrogen 15 mg/dL (9-16); Calcium 9.5 mg/dL (8.4-10.2); Carbon Dioxide 21 mmol/L (22-29); Chloride 103 mmol/L (96-108); Creatinine Clr Calc Pharmacy 103.6; Estimated Glomerular Filt Rate > 60; Glucose Random 161 mg/dL (60-115); Magnesium 1.9 mg/dL (1.6-2.6); Potassium 3.5 mmol/L (3.3-5.1); Sodium 137 mmol/L (135-145); Total Protein 7.2 g/dL (6.5-8.0)
[2024-02-19 11:27] LABS: Troponin-I High Sensitivity < 2.7 ng/L (<3.5-35.0)
[2024-02-19 11:41] LABS: Influenza A PCR NEGATIVE (Negative); Influenza B PCR NEGATIVE (Negative); Resp Syncy Virus RNA Qual PCR NEGATIVE (Negative); SARS COV2 PCR INHOUSE NEGATIVE (Negative)
--- NOTE | 2024-02-19 11:59 | ED_ITS ---
HPI - Chest Pain General Chief Complaint: Chest Pain Stated Complaint: Chest pain/L arm pain Time Seen by Provider: 02/19/24 11:43 Source: patient and family Mode of arrival: ambulatory Limitations: no limitations History of Present Illness HPI narrative: 53-year-old male came in for evaluation of left upper extremity burning sensation and numbness for the past few weeks after he tried to left a refrigerator while he was on his knees. Burning sensation affecting the whole left upper extremity with numbness for few weeks, patient was seen and evaluated by PCP diagnosed with cervical radiculopathy patient was placed on prednisone course with no improvement returned today for increased burning sensation to the left arm. Related Data Home Medications Medication Instructions Recorded Confirmed cholecalciferol (vitamin D3) 125 125 mcg PO DAILY 07/07/23 mcg (5,000 unit) capsule Previous Rx's Medication Instructions Recorded rosuvastatin 5 mg tablet (Crestor) 5 mg PO DAILY #90 tabs 12/04/23 cyclobenzaprine 10 mg tablet 10 mg PO BEDTIME #14 tabs 02/08/24 lisinopril 10 mg tablet 10 mg PO DAILY #90 tabs 02/08/24 meloxicam 15 mg tablet 15 mg PO DAILY #14 tabs 02/08/24 prednisone 10 mg tablet 10 mg PO DIRECTED #7 tabs 02/17/24 gabapentin 600 mg tablet 600 mg PO BEDTIME #10 tabs 02/19/24 (Neurontin) Allergies Allergy/AdvReac Type Severity Reaction Status Date / Time No Known Allergies Allergy Verified 02/19/24 10:45 Review of Systems 2 Review of Systems: All other systems are reviewed and are negative Constitutional: Reports as per HPI and Reports no additional constitutional complaints Eyes: Reports as per HPI and Reports no additional eye complaints Reports system reviewed and no additional complaints, except as documented Cardiovascular: Reports as per HPI and Reports no additional cardiovascular complaints Respiratory: Reports as per HPI and Reports no additional respiratory complaints Gastrointestinal: Reports as per HPI and Reports no additional gastrointestinal complaints Genitourinary: Reports no additional female genitourinary complaints Musculoskeletal: Reports no additional musculoskeletal complaints Skin/Breast: Reports system reviewed and no additional complaints, except as docu Psychiatric: Reports no additional psychiatric complaints Endocrine: Reports no additional endocrine complaints Hematologic/Lymphatic: Reports no additional hematologic/lymphatic complaints Allergic/Immunologic: Reports no additional allergic/immunologic complaints Reports system reviewed and no additional complaints, except as documented and Reports Abnormal speech present [facility] Past Medical History Medical History Diverticulosis Tubular adenoma HTN (hypertension) Acid reflux Surgical History History of prostate surgery Hx of lumbar discectomy Family History Family History Brother Brain aneurysm Social History Social History Household Members: Spouse Household Members Other:: Daughter Housing: House Alcohol intake: current Alcohol intake frequency: a few times a month Alcohol type: beer Comment: tylenol given Patient Tobacco Use Status: Never used Tobacco Smoked in Last 30 Days: No e-Cigarette/Vaping Use: Never Used Second Hand Smoke Exposure: No Use of substances other than those prescribed or required for medical reasons: No Advance Directives: No service: No Current occupational status: employed Current occupation: [employer] Current occupational exposures/hazards: Yes Cognitive needs: No Hearing needs: No Vision needs: Yes (glasses) Physical Exam 2 Vital Signs: Vital Signs: Last Vital Signs Temp 98.0 F 02/19/24 12:38 Pulse 81 02/19/24 12:38 Resp 18 02/19/24 12:38 BP 148/89 H 02/19/24 12:38 Pulse Ox 96 02/19/24 12:38 O2 Del Method Room Air 02/19/24 12:38 BMI result Body Mass Index 28.5 Vital signs have been reviewed and appear to be correct. Blood pressure elevated. Heart rate normal. Respiratory rate Elevated. Temperature normal. Oxygen saturation normal. Appearance: Alert. Oriented X3. No acute distress. Head: Normal external exam. Normocephalic. Atraumatic. No Fay signs noted. No raccoon eyes noted Eyes: PERRLA. EOMI. Conjunctiva and sclera normal. Eyelids normal. ENT: TM's Normal. Pharynx normal. Uvula midline. Moist mucous membranes. No trismus noted. No drooling noted. No muffled voice noted. Neck: Normal inspection. Neck supple. FROM. No adenopathy. Thyroid Normal. No meningeal signs. No neck mass noted. CVS: Normal heart rate and rhythm. Heart sound normal. No murmurs noted. Pulses normal throughout. Respiratory: No respiratory distress. Painless inspiration. Breath sounds normal. No wheezes/rales/rhonchi noted. Chest nontender. No accessory muscle usage noted or decreased air movement noted. Abdomen: Soft and nontender. Bowel sounds normal in all 4 quadrants. No distention noted. No organomegaly noted. No visible injury noted. Back: No CVA tenderness. Full range of motion noted. Skin: Skin warm and dry. Normal skin color. Normal skin turgor. No rashes/lesions/lacerations noted. Extremities: No lower extremity edema. Extremities exhibit normal range of motion. Extremities nontender. Neuro: Oriented X 3. Cranial nerve exam: II-XII are grossly intact No motor deficit. No sensory deficit. Reflexes normal. Course Reevaluation(s) Reevaluation #1: 53-year-old male with left arm numbness and burning sensation for few weeks after trying to lift heavy refrigerator while on his knees, he has been worked up for cervical radiculopathy by his PCP, and patient will be scheduled for MRI as an outpatient as per PCP. Patient received Neurontin In the ED with a good resolution of the pending sensation. Will discharge to follow-up with PCP will prescribe Neurontin to control patient's symptoms patient was instructed to continue with steroid course prescribed by his PCP. Time: 14:46 Medications Administered Discontinued Medications Generic Name Dose Route Start Last Admin Trade Name Isauroq PRN Reason Stop Dose Admin Gabapentin 600 mg 02/19/24 12:15 02/19/24 12:30 Gabapentin 600 Mg Tablet PO 02/19/24 12:16 600 mg ONCE ONE Administration Hydromorphone HCl 1 mg 02/19/24 12:15 02/19/24 12:29 Hydromorphone Hcl 1 Mg/Ml Syringe IVPUSH 02/19/24 12:16 1 mg ONCE ONE Administration Protocol Methylprednisolone Sodium Succinate 125 mg 02/19/24 12:15 02/19/24 12:30 Methylprednisolone Sod Succ 125 Mg/2 Ml Vial IVPUSH 02/19/24 12:16 125 mg ONCE ONE Administration Medical Decision Making Differential Diagnosis Differential Diagnoses: The differential diagnosis associated with the presentation includes ( ACS, neurological deficit, cervical radiculopathy, myofascial muscle pain, electrolyte derangement, severe anemia.) Admission/Observation Consideration of admission/observation: Escalation of care including admission/observation considered Lab Data MDM Lab Attestation statement: I reviewed the patient's lab results. 02/19/24 10:59 02/19/24 10:59 Labs: Lab Results 02/19/24 Range/Units 10:59 WBC 6.2 (4.8-10.8) X10*3/uL RBC 4.65 (4.60-5.80) X10*6/uL Hgb 14.8 (14.0-18.0) g/dl Hct 41.2 L (42.0-52.0) % MCV 88.6 (80.0-98.0) fL MCH 31.8 (27.0-33.0) pg MCHC 35.9 (31.0-36.0) g/dl RDW 12.3 (11.0-16.0) % Plt Count 151 L (160-400) X10*3/uL MPV 9.2 L (9.4-12.4) fL Immature Gran % (Auto) 0.3 (0.0-0.4) % Neut % (Auto) 74.9 H (45-73) % Lymph % (Auto) 16.3 L (20-40) % [place] % (Auto) 7.9 (2-11) % Eos % (Auto) 0.3 (0-4) % Baso % (Auto) 0.3 (0-2) % Lymph # (Auto) 1.0 L (1.2-4.9) X10*3/uL [place] # (Auto) 0.5 (0.1-1.2) X10*3/uL Eos # (Auto) 0.0 (0.0-0.4) X10*3/uL Baso # (Auto) 0.0 (0.0-0.2) X10*3/uL Abs Immat Gran (auto) 0.02 (0.00-0.03) X10*3/uL Absolute Neuts (auto) 4.6 (2.0-8.3) x10*3/uL Absolute Nucleated RBC 0.000 (0.0-0.012) X10*3/uL Nucleated RBC % (auto) 0.0 (0.0-0.2) /100WBC PT 10.9 L (11.1-13.3) SEC INR 0.9 (0.9-1.1) APTT 25.3 L (26.0-36.8) SEC Sodium 137 (135-145) mmol/L Potassium 3.5 (3.3-5.1) mmol/L Chloride 103 (96-108) mmol/L Carbon Dioxide 21 L (22-29) mmol/L Anion Gap 17 (12-20) BUN 15 (9-16) mg/dL Creatinine 0.92 (0.5-1.4) mg/dL Estim Creat Clear Calc 103.6 Estimated GFR > 60 Random Glucose 161 H (60-115) mg/dL Calcium 9.5 (8.4-10.2) mg/dL Magnesium 1.9 (1.6-2.6) mg/dL Total Bilirubin 1.5 H (0.0-1.0) mg/dL AST 45 H (5-37) U/L ALT 47 H (0-40) U/L Alkaline Phosphatase 66 (39-117) U/L Troponin I High Sens < 2.7 (<3.5-35.0) ng/L Total Protein 7.2 (6.5-8.0) g/dL Albumin 4.2 (3.5-5.0) g/dL Influenza Type A (PCR) NEGATIVE (Negative) Influenza Type B (PCR) NEGATIVE (Negative) RSV RNA Qual (PCR) NEGATIVE (Negative) SARS-CoV-2 RNA (RT-PCR) NEGATIVE (Negative) Independent Interpretation I performed an independent interpretation of an: Plain X-Ray ( Chest: No acute cardiopulmonary process.) Radiology Impression Discussion of test interpretation with radiology: I have reviewed the radiologist's reading. Discharge Plan Discharge Clinical Impression: Cervical radiculopathy Patient Disposition: Home, Self-Care Instructions: Cervical Radiculopathy (ED) Prescriptions: New gabapentin [Neurontin] 600 mg tablet 600 mg PO BEDTIME Qty: 10 0RF No Action rosuvastatin [Crestor] 5 mg tablet 5 mg PO DAILY Qty: 90 1RF prednisone 10 mg tablet 10 mg PO DIRECTED Qty: 7 0RF Rx Instructions: see taper instructions cholecalciferol (vitamin D3) 125 mcg (5,000 unit) capsule 125 mcg PO DAILY lisinopril 10 mg tablet 10 mg PO DAILY Qty: 90 1RF meloxicam 15 mg tablet 15 mg PO DAILY Qty: 14 0RF cyclobenzaprine 10 mg tablet 10 mg PO BEDTIME Qty: 14 0RF Referrals: Owen Modi MD [Primary Care Provider] -
[2024-02-19] MEDS: HYDROmorphone HCl 1 MG/ML SYRINGE IVPUSH (12:29)
[2024-02-19] MEDS: Gabapentin 600 MG TABLET PO (12:30)
[2024-02-19] MEDS: methylPREDNISolone Sod Succ 125 MG/2 ML VIAL IVPUSH (12:30)
[2024-02-19 12:38] VITALS: BP 148/89; PULSE 81; RESP 18; TEMP 36.7; O2SAT 96
--- NOTE | 2024-02-19 12:39 | PC.NURSE ---
pt a&ox3, monitoring and evaluation advisor nsr, vss, pt medicated per order, call castrejon within reach, will continue to monitor
[2024-02-19 15:27] VITALS: BP 144/78; PULSE 84; RESP 18; TEMP 36.7; O2SAT 98
== END 2024-02-19 15:28 | disposition home or self-care (01) ==
PROVIDERS: Physician Assistant Medical; Emergency Provider Emergency Medicine; PCP Internal Medicine
DX: M54.12 Radiculopathy, cervical region (principal); I10 Essential (primary) hypertension; Z11.52 Encounter for screening for COVID-19; Z20.828 Contact with and (suspected) exposure to other viral communicable diseases
CPT/HCPCS: 0241U; 71046; 80053; 83735; 84484; 85025; 85610; 85730; 93005; 96374; 96375; 99284; 99285; J1170; J2930

== ENCOUNTER → 2024-02-19 10:36 | Outpatient (BNV) | payer OTHER, SELFPAY | PROVIDERS: Emergency Provider Emergency Medicine; PCP Internal Medicine; Visit Provider Internal Medicine Cardiovascular Disease | DX: R07.9 Chest pain, unspecified (principal) | CPT/HCPCS: 93010 ==

== ENCOUNTER 2024-03-12 18:35 | Outpatient (REF) | payer OTHER, SELFPAY ==
--- NOTE | ~2024-03-12 | MR_ITS ---
EXAMINATION: MR CERVICAL SPINE WITHOUT CONTRAST CLINICAL INFORMATION: Spondylosis without myelopathy or radiculopathy. COMPARISON: No relevant prior imaging. TECHNIQUE: MRI of the cervical spine was obtained using routine sequences without contrast. FINDINGS: There is nonspecific straightening of the cervical lordosis. Slight retrolisthesis of C5 on C6 and C6 on C7. Vertebral body heights are preserved. Minimal type II degenerative endplate changes at C6-C7. There is loss of intervertebral disc height and T2 signal intensity at multiple levels related to disc degeneration. There is no cord compression or abnormal intramedullary signal changes. The cervicomedullary junction are normal. Limited visualization of the posterior fossa reveals no abnormal finding. Occipital condyles and lateral C1 masses are intact. There is degenerative arthrosis of the atlantodental joint. C1-C2 articular facets are unremarkable. At C2-C3 the annular contour is normal. No canal or neuroforaminal compromise. At C3-C4 there is a bulging disc. No canal stenosis. Uncovertebral joint spurring and facet degenerative change causes moderate left and mild right neuroforaminal encroachment. At C4-C5 there is a bulging disc. No canal stenosis. Uncovertebral joint spurring and facet degenerative change causes severe left neuroforaminal encroachment. At C5-C6 there is a bulging disc and buckling of the ligamenta flava causing moderate canal stenosis. Uncovertebral joint spurring and facet degenerative change causes severe bilateral neuroforaminal encroachment. At C6-C7 there is a bulging disc. No canal stenosis. Uncovertebral joint spurring and facet degenerative change causes severe left and mild right neuroforaminal encroachment. At C7-T1 there is a slightly bulging disc. Bilateral facet degenerative change. No canal stenosis. Mild left neuroforaminal encroachment. Visualized soft tissues of the neck are normal. Vascular flow voids are maintained. MR/MR cervical spine wo con IMPRESSION: There is multilevel degenerative spondylosis of the cervical spine. Moderate canal stenosis at C5-C6. Otherwise no canal compromise. No cord compression or abnormal intramedullary signal changes. There are varying degrees of neuroforaminal encroachment related to uncovertebral joint spurring and facet degenerative change as described above.
== END 2024-03-12 18:36 | disposition home or self-care (01) ==
LOC: HO.MRI 18:35
PROVIDERS: PCP Internal Medicine; Visit Provider Internal Medicine
DX: M47.812 Spondylosis without myelopathy or radiculopathy, cervical region (principal)
CPT/HCPCS: 72141

== ENCOUNTER 2024-03-13 12:00 | Outpatient (RCR) | payer OTHER, SELFPAY ==
--- NOTE | 2024-02-16 14:55 | MHC.PT.EP ---
[facility] [place] Office [place] Office [place] Office [address] [phone] F: [phone] F: [phone] F: [phone] F: [phone] Physical Therapy Plan of Care Date of Evaluation: 02/16/24 Date of Surgery: N/A Diagnosis: L shoulder strain (RL) Assessment: pt is a 53 y/o male presenting to physical therapy w/ referring diagnosis of sprain of left shoulder. Questionable peripheral nerve compression versus muscular strain. His pain and tingling was reproduced w/ palpation to rhomboid/middle trap as well as teres major/minor. I am less suspicious of cervical spine involvement as I was not able to reproduce his UE symptoms w/ cervical movements. Impairments include pain, decreased range of motion, decreased strength, impaired functional mobility, impaired postural awareness, and altered ambulation mechanics. pt is a good candidate for skilled PT due to age, potential remediation of impairments, typical disease/condition progression and prognosis, comorbidities, and motivation. pt would benefit from skilled PT intervention to provide a tailored strengthening and stretching exercise program, functional training, gait training, postural re-training, neuromuscular re-education, modalities as needed for pain, equipment safety demonstration. Frequency and Duration: The patient will be seen 2x/wk for 4 wks Short Term Goals: pt will be I w/ HEP to promote self-management of condition. pt will improve L shoulder flexion by at least 10 degrees to promote ease in reaching overhead. Axle Bearing Polisher Goals: pt will report a statistically significant improvement in self-reported outcome measure, SPADI, to promote return to PLOF. pt will demo proper lifting mechanics x5 reps of 40-50# object w/ <2/10 pain to promote return to functional lifting. Treatment Plan: Modalities to reduce pain, spasms and effusion. Manual therapy to restore motion and function. Therapeutic exercise to improve strength and flexibility. Neuromuscular re-education for posture and balance. Therapeutic activities to return to functional activities of daily living. Electronically signed by: Sammi Ramirez PT, DPT Please sign and return to therapist. Thank you for your referral.
--- NOTE | 2024-03-26 15:30 | MHC.PT.DC ---
[facility] [place] Office [place] Office [place] Office [address] [phone] F: [phone] F: [phone] F: [phone] F: [phone] Physical Therapy Discharge Report Diagnosis: L shoulder strain (RL) Date of Surgery: N/A Date of Evaluation: 02/16/24 Date of Discharge: 03/26/24 Treatments to Date: 5 Cancellations to Date: 3 No Shows to Date: 0 Discharge Status: Improved Function Visit Non-compliance Discharge Summary: The patient was overall reporting improvement of both pain symptoms and radicular symptoms. He was having some persistent numbness to medial forearm from elbow to fingers but at a much lower intensity. He was able to return to push ups without increased pain. He has not scheduled any additional visits in two weeks. He is discharged from this physical therapy plan of care. Electronically signed by: Sammi Ramirez PT, DPT Please sign and return to therapist. Thank you for your referral.
== END 2024-03-26 15:30 | disposition home or self-care (01) ==
LOC: HO.PT 12:00
PROVIDERS: PCP Internal Medicine; Visit Provider Internal Medicine
DX: S43.402D Unspecified sprain of left shoulder joint, subsequent encounter (principal)
CPT/HCPCS: 97035; 97110; 97140; 97161; 97530

== ENCOUNTER 2024-03-28 09:03 | Outpatient (AMB) | payer OTHER, SELFPAY ==
--- NOTE | 2024-03-28 09:11 | A.OFFPC_ITS ---
Vital Signs 03/28/24 09:12 03/28/24 09:31 Height 5 ft 10 in Weight 190 lb 4 oz BMI 27.3 BP 140/88 H 122/78 Blood Pressure Location Lt brachial Lt brachial Position Sitting Sitting Pulse 83 Pulse Source Pulse Oximeter Pulse Oximetry (%) 95 Oxygen Delivery Method Room Air Intake Visit Reasons: burning in left arm increased pain in upper back Intake Note: Patient is here to follow up on Burning in left arm, increased pain in upper back and MRI results Unit Reactor Operator Required: No Photogrammetric Stereo Compiler: Not Required per policy Accompanied by: Self / Same As Patient Allergies No Known Allergies Allergy (Verified 03/28/24 09:45) Medication List - Last Reconciled 03/28/24 by Owen Modi MD cholecalciferol (vitamin D3) 125 mcg PO DAILY lisinopril 10 mg PO DAILY rosuvastatin (Crestor) 5 mg PO DAILY Tobacco use date assessed: 03/28/24 Dental Screening Dental Screen Date: 02/16/24 HPI burning in left arm increased pain in upper back HPI Details 53-year-old male presents to the office for a follow-up visit. Patient had an MRI recently. The numbness in the arm is now reduced and mostly on the lateral side of the forearm. He is retained strength in both his arms. Able to do all activities of daily living. [facility] Medical History (Updated 03/28/24 @ 09:47 by Owen Modi MD) Central stenosis of spinal canal Diverticulosis Tubular adenoma HTN (hypertension) Acid reflux Surgical History History of prostate surgery Hx of lumbar discectomy Family History Brother Brain aneurysm Social History Household Members: Spouse Household Members Other:: Daughter Housing: House Alcohol intake: current Alcohol intake frequency: a few times a month Alcohol type: beer Comment: tylenol given Patient Tobacco Use Status: Never used Tobacco e-Cigarette/Vaping Use: Never Used Second Hand Smoke Exposure: No service: No Current occupational status: employed Current occupation: [employer] Current occupational exposures/hazards: Yes Cognitive needs: No Hearing needs: No Vision needs: Yes (glasses) Questionnaire Thrive Questionnaire Date Thrive assessed: 02/08/24 FRANNIE-7 AMB Questionnaire FRANNIE-7 Date FRANNIE - 7 assessed: 02/08/24 Source: Developed by Drs. Sylvester Rosado, Ofelia Mary, Norman Fry and colleagues, with an educational vasquez from [email or web address]. Physical exam (Primary Care) Vital Signs: Last Vital Signs Pulse 83 03/28/24 09:12 BP 122/78 03/28/24 09:31 Pulse Ox 95 03/28/24 09:12 Oxygen Delivery Method Room Air 03/28/24 09:12 BMI result Body Mass Index 27.3 Tobacco/Smoking Status: Tobacco use Status Tobacco use date assessed 03/28/24 03/28/24 09:32 Patient Tobacco Use Status Never used Tobacco 03/28/24 09:32 e-Cigarette/Vaping Use Never Used 03/28/24 09:32 Thrive Assessment: Date of Thrive Assessment Date Thrive assessed 02/08/24 03/28/24 09:32 Const General: cooperative and healthy appearing Nutritional Appearance: well nourished Orientation/consciousness: patient oriented x3 Limitations: no limitations HENMT Head: Yes normal to inspection Eyes General: appearance normal, both eyes and all related structures Neck Neck: Yes normal visual inspection Chest Chest palpation & inspection: normal palpation of entire chest wall Resp Effort & Inspection: normal respiratory effort Neuro General: patient oriented x3 Assessment and Plan Assessment & Plan (1) HTN (hypertension): Code(s): I10 - Essential (primary) hypertension Plan: Repeat blood work has been ordered. In the last blood work liver enzymes were slightly elevated along with random blood sugar. (2) Central stenosis of spinal canal: Code(s): M48.00 - Spinal stenosis, site unspecified Plan: MRI results discussed in detail with patient. Patient has degenerative joint disease in the cervical spine with bulging discs. There is canal stenosis and C5-6 area. A neurosurgical opinion will be sought. Gabapentin has been stopped. Orders: Orders Liver Panel Today I10 - Essential (primary) hypertension Hemoglobin A1c Today I10 - Essential (primary) hypertension Basic Metabolic Panel Today I10 - Essential (primary) hypertension Referrals Neurosurgery Referral M48.00 - Spinal stenosis, site unspecified Medications: Discontinued gabapentin (Neurontin) Discontinued Reason: Doctor's Order 600 mg PO DAILY 30 tabs 0RF Coding Level of Care Code Est Pt Level 4 (04348) Diagnoses HTN (hypertension) I10 Central stenosis of spinal canal M48.00
[2024-03-28 09:12] VITALS: BP 140/88; PULSE 83; O2SAT 95; BMI 27.3
[2024-03-28 09:31] VITALS: BP 122/78
== END 2024-03-28 11:58 | disposition home or self-care (01) ==
PROVIDERS: PCP Internal Medicine; Visit Provider Internal Medicine
DX: I10 Essential (primary) hypertension (principal); M48.00 Spinal stenosis, site unspecified
CPT/HCPCS: 99214

== ENCOUNTER 2024-04-02 10:07 | Outpatient (AMB) | payer OTHER, SELFPAY ==
--- NOTE | 2024-04-02 10:21 | HO.SPINEOV ---
Intake Visit Reasons: cervical stenosis Intake Note: Mr. Campos is here today c/o Left arm/finger numbness. Esol Teacher Required: No Allergies No Known Allergies Allergy (Verified 04/02/24 10:22) Assessment & Plan Assessment & Plan (1) Cervical radiculopathy: Code(s): M54.12 - Radiculopathy, cervical region Category: Medical Plan Dear Rian, Thank you for referring Mr Campos to our office today. 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 At 1st it was just discomfort there then started to radiate to his scapular region. It then started radiating down his arm into his 4th and 5th digits with some feelings of weakness in the hand as well as backup into his left chest. It was very intense in the beginning, but seems to have subsided significantly in terms of the intensity. He has not here today because of pain, but rather he has been left with after the injury feeling of numbness on his medial forearm just distal to his elbow and residual weakness in his hand. PMH: He is otherwise healthy, he did undergo a L4-5 diskectomy in 2013 and although it helped his pain significantly, he has had residual numbness in his left leg since that time. He underwent prostatectomy in 2016 for prostate cancer. History of hypertension. Social hx: He has not smoke, drink use any recreational drugs Medications: Lisinopril and a low-dose statin Allergies: None Physical exam: He has reduced sensation along the C8-T1 dermatome, mild reduction in strength of the finger intrinsics but triceps biceps deltoids are normal. No reflex changes. Imaging review: Cervical MRI done at [facility] shows multilevel degenerative disc disease with foraminal stenosis at C4-5, C5-6 and to a lesser degree C6-7. Although the radiologist did not reported I can see on the left at T1-2 there is what looks like an acute herniated disc on the left, with foraminal narrowing seen on the sagittal cut. Impression: 53-year-old gentleman presents to the office today for evaluation of what sounds like a radiculopathy in the left arm, which seems to be resolving in terms of the intensity of the pain. He has been left with a feeling of numbness in his medial forearm on the left and some hand weakness. The distribution in the dermatomal pattern seems to fit best with what is seen on the imaging is T1 foraminal stenosis at the T1-2 disc space where there appears to be a disc herniation. Although he has degenerative findings above at the C4-5 and C5-6 primarily, I do not see any findings for what looks like an acute disc herniation. Either way, the fact that the pain is resolving means that the pressure has come off the nerve, but what he is experiencing is the after effect of the traumatic herniation on the nerve. We know that this will either recover on its own or it will not, with or without surgery. Therefore, since the pain is gone, the only thing to do right now is to give this time in hopes that it gets better on its own. This is very similar to what happened in his left leg when he had the disc herniation. Thank you for allowing us to care for your patient. The total time spent with this visit with this patient was 45 minutes reviewing history, physical exam, cervical imaging review, and implementation of treatment plan or further diagnostic testing Bulmaro Rivera MD,PhD [facility] Coding Level of Care Code New Pt Level 4 (43685) Diagnoses Cervical radiculopathy M54.12
== END 2024-04-02 11:58 | disposition home or self-care (01) ==
PROVIDERS: PCP Internal Medicine; Referring Provider Internal Medicine; Visit Provider Physician Assistant
DX: M54.12 Radiculopathy, cervical region (principal)
CPT/HCPCS: 99204

== ENCOUNTER → 2024-04-02 10:07 | Outpatient (BNVA) | payer OTHER, SELFPAY | PROVIDERS: PCP Internal Medicine; Visit Provider Physician Assistant ==

== ENCOUNTER 2024-07-16 07:51 | Outpatient (REF) | payer OTHER, SELFPAY ==
[2024-07-16 11:09] LABS: Alanine Aminotransferase 33 U/L (0-40); Albumin Level 4.5 g/dL (3.5-5.0); Alkaline Phosphatase 62 U/L (39-117); Anion Gap 13 (12-20); Aspartate Amino Transferase 28 U/L (5-37); Bilirubin Direct 0.4 mg/dL (0.0-0.5); Bilirubin Total 1.3 mg/dL (0.0-1.0); Blood Urea Nitrogen 12 mg/dL (9-16); Calcium 10.1 mg/dL (8.4-10.2); Carbon Dioxide 24 mmol/L (22-29); Chloride 107 mmol/L (96-108); Estimated Glomerular Filt Rate > 60; Glucose Random 103 mg/dL (60-115); Potassium 3.9 mmol/L (3.3-5.1); Sodium 140 mmol/L (135-145); Total Protein 7.3 g/dL (6.5-8.0)
[2024-07-16 11:20] LABS: Estimated Average Glucose 105 mg/dL; Hemoglobin A1C 131.7389 umol/L; Hemoglobin A1c % 5.3 % (<6.0)
== END 2024-07-16 07:52 | disposition home or self-care (01) ==
LOC: HO.HMGCLDS 07:51
PROVIDERS: PCP Internal Medicine; Visit Provider Internal Medicine
DX: I10 Essential (primary) hypertension (principal); Z13.1 Encounter for screening for diabetes mellitus
CPT/HCPCS: 36415; 80048; 80076; 83036

== ENCOUNTER 2024-07-18 13:04 | Outpatient (AMB) | payer OTHER, SELFPAY ==
[2024-07-18 13:06] VITALS: BP 112/78; PULSE 84; O2SAT 96; BMI 26.6
--- NOTE | 2024-07-18 13:06 | A.OFFPC_ITS ---
Vital Signs 07/18/24 13:06 Height 5 ft 10 in Weight 185 lb 2 oz BMI 26.6 BP 112/78 Blood Pressure Location Lt brachial Position Sitting Pulse 84 Pulse Source Pulse Oximeter Pulse Oximetry (%) 96 Oxygen Delivery Method Room Air Intake Visit Reasons: Physical Exam Car Stereo Installer Required: No Accompanied by: Self / Same As Patient Allergies No Known Allergies Allergy (Verified 07/18/24 13:07) Tobacco use date assessed: 07/18/24 Dental Screening Dental Screen Date: 07/18/24 Did you have a dental visit in the last 12 months?: Yes Did you have a dental problem in the last 6 months where you did not have access to dental care?: No Was dental information given to patient?: Patient has dentist HPI Physical Exam HPI Details 53-year-old male presents to the office requesting an annual physical. [facility] Medical History (Updated 07/18/24 @ 13:55 by Owen Modi MD) Familial hypercholesterolemia Central stenosis of spinal canal Diverticulosis Tubular adenoma HTN (hypertension) Acid reflux Surgical History History of prostate surgery Hx of lumbar discectomy Family History Brother Brain aneurysm Social History Household Members: Spouse Household Members Other:: Daughter Housing: House Alcohol intake: current Alcohol intake frequency: a few times a month Alcohol type: beer Comment: tylenol given Patient Tobacco Use Status: Never used Tobacco e-Cigarette/Vaping Use: Never Used Second Hand Smoke Exposure: No service: No Current occupational status: employed Current occupation: [employer] Current occupational exposures/hazards: Yes Cognitive needs: No Hearing needs: No Vision needs: Yes (glasses) Questionnaire PHQ-9 Over the last 2 weeks, how often have you been bothered by any of the following problems? 1. Little interest or pleasure in doing things: not at all 2. Feeling down, depressed, or hopeless: not at all 3. Trouble falling or staying asleep, or sleeping too much: not at all 4. Feeling tired or having little energy: not at all 5. Poor appetite or overeating: not at all 6. Feeling bad about yourself - or that you are a failure or have let yourself or your family down: not at all 7. Trouble concentrating on things, such as reading the newspaper or watching television: not at all 8. Moving or speaking so slowly that other people could have noticed. Or the opposite - being so fidgety or restless that you have been moving around a lot more than usual: not at all 9. Thoughts that you would be better off or of hurting yourself in some way: not at all Total score: 0 Depression Screening Interpretation: Negative Depression Screening Done: Yes Source: Developed by Drs. Sylvester Rosado, Ofelia Mary, Norman Fry and colleagues, with an educational vasquez from [employer]. Thrive Questionnaire Date Thrive assessed: 07/18/24 I am a: Patient What is your living situation today?: I have a steady place to live Within the past 12 months, did the food you bought not last and you didn't have the money to get more?: Never true Within the past 12 months, did you worry whether your food would run out before you got money to buy more?: Never true Do you have trouble paying for medicines?: No Do you have trouble getting transportation to medical appointments?: No Do you have trouble paying your heating and electricity bill?: No Do you have trouble taking care of your child, family member or friend?: No Do you have trouble with day-to-day activities such as bathing, preparing meals, shopping, managing finances, etc.?: No Are you currently unemployed and looking for a job?: No Are you interested in more education?: No Please select the resources that you would like help with: None Currently or been in a relationship where the following occur: No concerns reported THRIVE Score: 0 AUDIT C Alcohol Use Questionnaire (AUDIT-C) 1. How often do you have a drink containing alcohol?: Monthly or less 2. How many drinks containing alcohol do you have on a typical day when you are drinking?: 1 or 2 Total Score: 1 FRANNIE-7 AMB Questionnaire FRANNIE-7 Date FRANNIE - 7 assessed: 07/18/24 Feeling nervous, anxious, or on edge: 0 = Not at all Not being able to stop or control worryin = Not at all Worrying too much about different things: 0 = Not at all Trouble relaxin = Not at all Being so restless that it is hard to sit still: 0 = Not at all Becoming easily annoyed or irritable: 0 = Not at all Feeling afraid as if something awful might happen: 0 = Not at all Total FRANNIE-7 score (0-4 normal; 5-9 mild; 10-14 moderate; 15-21 severe): 0 Source: Developed by Drs. Sylvester Rosado, Ofelia Mary, Norman Fry and colleagues, with an educational vasquez from [employer]. Physical exam (Primary Care) Vital Signs: Last Vital Signs Pulse 84 07/18/24 13:06 BP 112/78 07/18/24 13:06 Pulse Ox 96 07/18/24 13:06 Oxygen Delivery Method Room Air 07/18/24 13:06 BMI result Body Mass Index 26.6 Tobacco/Smoking Status: Tobacco use Status Tobacco use date assessed 07/18/24 07/18/24 13:10 Patient Tobacco Use Status Never used Tobacco 07/18/24 13:10 e-Cigarette/Vaping Use Never Used 07/18/24 13:10 PHQ-9: PHQ-9 Score PHQ-9: Total score 0 07/18/24 13:10 Depression Screening Interpretation: Negative Thrive Assessment: Date of Thrive Assessment Date Thrive assessed 07/18/24 07/18/24 13:10 Currently or been in a relationship where the following occur: No concerns reported Const General: cooperative and healthy appearing Nutritional Appearance: well nourished Orientation/consciousness: patient oriented x3 Limitations: no limitations [facility] Head: Yes normal to inspection Eyes General: appearance normal, both eyes and all related structures Neck Neck: Yes normal visual inspection Chest Chest palpation & inspection: normal palpation of entire chest wall Resp Effort & Inspection: normal respiratory effort Neuro General: patient oriented x3 Assessment and Plan Assessment & Plan (1) Cervical radiculopathy: Code(s): M54.12 - Radiculopathy, cervical region Plan: Patient has seen 2 neurosurgeons who gave him the same opinion. Not a surgical candidate. His symptoms have also subsided. So reassurance. (2) Giant cell arteritis: Code(s): M31.6 - Other giant cell arteritis Plan: This condition has completely subsided. (3) HTN (hypertension): Code(s): I10 - Essential (primary) hypertension Plan: Blood pressure is in range. Continue medications at same dosage. (4) Familial hypercholesterolemia: Code(s): E78.01 - Familial hypercholesterolemia Plan: LDL is in range. Continue medications at same dosage. (5) Annual physical exam: Code(s): Z00.00 - Encounter for general adult medical examination without abnormal findings Coding Level of Care Code Est Pt Prev Care 40-64y(52084) Diagnoses Cervical radiculopathy M54.12 Giant cell arteritis M31.6 HTN (hypertension) I10 Familial hypercholesterolemia E78.01 Annual physical exam Z00.00
== END 2024-07-18 15:18 | disposition home or self-care (01) ==
PROVIDERS: PCP Internal Medicine; Visit Provider Internal Medicine
DX: M54.12 Radiculopathy, cervical region (principal); M31.6 Other giant cell arteritis; I10 Essential (primary) hypertension; E78.01 Familial hypercholesterolemia; Z00.00 Encounter for general adult medical examination without abnormal findings
CPT/HCPCS: 99396

== ENCOUNTER → 2025-07-24 13:21 | Outpatient (AMB) | payer OTHER, SELFPAY ==
--- OUTSIDE RECORDS SUMMARY | 2016-06-09 | XMS_ITS | Encounter Summary ---
Author Organization [facility] Address [address] [place] [address] Phone Care Team Providers Care Yoga Instructor Name Role Phone Terese Vanessa MD Primary Care Provider [email or web address] Festus Velez MD, PhD Unavailable [phone] Reason for Visit * MRI/CAT Scan - Closed Specialty Diagnoses / Procedures Referred By Contac t Referred To Contact Radiology Procedures CT Abdomen Outside (No Interpretation) Mikey Rodriguez MD, PhD [address] [place] [address] Phone: tel: fax: [email or web address] Referral ID Status Reason Start Date Expiration Date Visits Re quested Visits Authorized [id number] Closed 08/05/2016 08/05/2017 1 1 Encounter Details Date Type Department Care Team (Late st Contact Info) Description 06/09/2016 Hospital Encounter [facility] [address] [place] [address] Mikey Rodriguez MD, PhD [address] [place] [address] [email or web address] Social History Tobacco Use Types Packs/Day Years Used Date Smoking Tobacco: Never Smokeless Tobacco: Never Alcohol Use Standard Drinks/Week Comments Yes 2 (1 standard drink = 0.6 oz pur e alcohol) Education Answer Date Recorded Are you interested in more education? Not on sravan e 03/25/2023 Are you concerned about learning? Not on file 03/25/2023 No 03/25/2023 No 03/25/2023 Digital Access Answer Date Recorded No 04/25/2023 No 04/25/2023 Reliable internet access at home? Not on file 04/25/2023 Device with a working camera? 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 Not on file Not on file Not on fi le documented as of this encounter Plan of Treatment Upcoming Encounters Date Type Department Care Team (Late st Contact Info) Description 09/03/2025 10:00 AM EDT Telemedicine Department of Urology [address] [phone] Shonda Carr, PATTERN SCRATCHER [address] [place] [phone] [email or web address] documented as of this encounter Procedures Procedure Name Priority Date/Time Associated Diagnosis Comments CT ABDOMEN OUTSIDE (NO INTERPRETATION) Routine 06/09/2016 12:00 AM EDT documented in this encounter Results * CT Abdomen Outside (No Interpretation) (06/09/2016 12:00 AM EDT) Narrative [facility] IMG INTERFACES - 08/05/2016 3:12 PM EDT This study is for PACS storage only and not for interpretation. Procedure Note SYSTEMGENERATED, DOCUMENTATION - 08/05/2016 This study is for PACS storage only and not for interpretation. M Kaleb Rodriguez MD, PhD IMG OUTSIDE IMAGING W/ OUT INTERPRETATION Final Result [facility] IMG INTERFACES documented in this encounter Visit Diagnoses Not on filedocumented in this encounter Care Teams Yoga Instructor Relationship Specialty Start Date End Date Terese Vanessa MD [email or web address] PCP - General Internal Medicine 12/24/15 12/25/17 Festus Velez MD, PhD [address] [place] [id number] [email or web address] Primary Oncologist Internal Medicine 02/16/16 documented as of this encounter Additional Source Comments The information contained in this document represents components of the legal health record. It is not the complete legal health record.[facility]
--- NOTE | 2025-07-24 13:24 | A.OFFPC_ITS ---
Vital Signs 07/24/25 13:25 Height 5 ft 10 in Weight 190 lb 6 oz BMI 27.3 BP 130/82 Blood Pressure Location Lt brachial Position Sitting Pulse 81 Pulse Source Pulse Oximeter Temp 97.3 F Temp Source Temporal Artery Scan Pulse Oximetry (%) 97 Oxygen Delivery Method Room Air Intake Visit Reasons: Annual Exam Intake Note: Patient is here today for a physical. 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: Not Required per policy Accompanied by: Self / Same As Patient Allergies No Known Allergies Allergy (Verified 07/24/25 13:25) Tobacco use date assessed: 07/24/25 Dental Screening Dental Screen Date: 07/24/25 Did you have a dental visit in the last 12 months?: Yes Did you have a dental problem in the last 6 months where you did not have access to dental care?: No Was dental information given to patient?: Patient has dentist [facility] Medical History (Updated 07/18/24 @ 13:55 by Owen Modi MD) Familial hypercholesterolemia Central stenosis of spinal canal Diverticulosis Tubular adenoma HTN (hypertension) Acid reflux Surgical History History of colonoscopy (~11/26/22) History of prostate surgery Hx of lumbar discectomy Family History Brother Brain aneurysm Social History Household Members: Spouse Household Members Other:: Daughter Housing: House Alcohol intake: current Alcohol intake frequency: a few times a month Alcohol type: beer Comment: tylenol given Patient Tobacco Use Status: Never used Tobacco e-Cigarette/Vaping Use: Never Used Second Hand Smoke Exposure: No service: No Current occupational status: employed Current occupation: [employer] Current occupational exposures/hazards: Yes Cognitive needs: No Hearing needs: No Vision needs: Yes (glasses) Questionnaire PHQ-9 Over the last 2 weeks, how often have you been bothered by any of the following problems? 1. Little interest or pleasure in doing things: not at all 2. Feeling down, depressed, or hopeless: not at all 3. Trouble falling or staying asleep, or sleeping too much: not at all 4. Feeling tired or having little energy: not at all 5. Poor appetite or overeating: not at all 6. Feeling bad about yourself - or that you are a failure or have let yourself or your family down: not at all 7. Trouble concentrating on things, such as reading the newspaper or watching television: not at all 8. Moving or speaking so slowly that other people could have noticed. Or the opposite - being so fidgety or restless that you have been moving around a lot more than usual: not at all 9. Thoughts that you would be better off or of hurting yourself in some way: not at all Total score: 0 Depression Screening Interpretation: Negative Depression Screening Done: Yes Source: Developed by Drs. Sylvester Rosado, Ofelia Mary, Norman Fry and colleagues, with an educational vasquez from [employer]. Thrive Questionnaire Date Thrive assessed: 07/17/25 I am a: Patient What is your living situation today?: I have a steady place to live Within the past 12 months, did the food you bought not last and you didn't have the money to get more?: Never true Within the past 12 months, did you worry whether your food would run out before you got money to buy more?: Never true Do you have trouble paying for medicines?: No Do you have trouble getting transportation to medical appointments?: No Do you have trouble paying your heating and electricity bill?: No Do you have trouble taking care of your child, family member or friend?: No Do you have trouble with day-to-day activities such as bathing, preparing meals, shopping, managing finances, etc.?: No Are you currently unemployed and looking for a job?: No Are you interested in more education?: No Please select the resources that you would like help with: None Currently or been in a relationship where the following occur: No concerns reported THRIVE Score: 0 AUDIT C Alcohol Use Questionnaire (AUDIT-C) 1. How often do you have a drink containing alcohol?: 2-4 times a month 2. How many drinks containing alcohol do you have on a typical day when you are drinking?: 1 or 2 3. How often do you have six or more drinks on one occasion?: Never Total Score: 2 FRANNIE-7 AMB Questionnaire FRANNIE-7 Date FRANNIE - 7 assessed: 07/24/25 Feeling nervous, anxious, or on edge: 0 = Not at all Not being able to stop or control worryin = Not at all Worrying too much about different things: 0 = Not at all Trouble relaxin = Not at all Being so restless that it is hard to sit still: 0 = Not at all Becoming easily annoyed or irritable: 0 = Not at all Feeling afraid as if something awful might happen: 0 = Not at all Total FRANNIE-7 score (0-4 normal; 5-9 mild; 10-14 moderate; 15-21 severe): 0 Source: Developed by Drs. Sylvester Rosado, Ofelia Mary, Norman Fry and colleagues, with an educational vasquez from [employer]. Physical exam (Primary Care) Vital Signs: Last Vital Signs Temp 97.3 F 07/24/25 13:25 Pulse 81 07/24/25 13:25 BP 130/82 07/24/25 13:25 Pulse Ox 97 07/24/25 13:25 Oxygen Delivery Method Room Air 07/24/25 13:25 BMI result Body Mass Index 27.3 Tobacco/Smoking Status: Tobacco use Status Tobacco use date assessed 07/24/25 07/24/25 13:30 Patient Tobacco Use Status Never used Tobacco 07/24/25 13:30 e-Cigarette/Vaping Use Never Used 07/24/25 13:30 PHQ-9: PHQ-9 Score PHQ-9: Total score 0 07/24/25 13:30 Depression Screening Interpretation: Negative Thrive Assessment: Date of Thrive Assessment Date Thrive assessed 07/17/25 07/24/25 13:30 Currently or been in a relationship where the following occur: No concerns reported Coding Level of Care Code Est Pt Prev Care 40-64y(29940) Diagnoses HTN (hypertension) I10 Physical exam Z00.00 Assessment & Plan Assessment & Plan (1) HTN (hypertension): Code(s): I10 - Essential (primary) hypertension Category: Medical Plan: BW ordered (2) Physical exam: Code(s): Z00.00 - Encounter for general adult medical examination without abnormal findings Category: Medical Plan: History of Present Illness - The patient is a 54-year-old male presenting with a physical examination and ongoing health management. 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 - Undetectable PSA levels: The patient underwent a PSA test which showed a decrease from 0.05 to 0.01, remaining undetectable. The urologist confirmed that the levels are not concerning despite initial miscommunication. - Hyperlipidemia and Hypertension: The patient is on medication for cholesterol and blood pressure management, indicating adherence to prescribed treatment. 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 Review of Systems - Musculoskeletal: Reports stress-related pain under the shoulder blade. - Genitourinary: Denies issues related to giant cell. - Cardiovascular: Denies chest pain or swelling in the feet. Physical Exam General: Cooperative and healthy appearing Nutritional Appearance: Well nourished Orientation/consciousness: Patient oriented x3 Limitations: No limitations Head: Normal to inspection General: Appearance normal, both eyes and all related structures Neck: Normal visual inspection Chest: Normal palpation of entire chest wall Respiratory: All pulses are good. No swelling in the feet. No pains anywhere. ormal respiratory effort Neurology: Patient oriented x3 Results - Labs: PSA test results showed a decrease from 0.05 to 0.01, remaining undetectable. Plan 1. Stress-Related Musculoskeletal Pain - Plan to manage stress through lifestyle modifications and potential referral for stress management therapy if symptoms persist. 2. Undetectable Psa Levels - Continue monitoring PSA levels with regular follow-up appointments. 3. Hyperlipidemia - Continue current medication regimen for cholesterol management. 4. Hypertension - Continue current medication regimen for blood pressure management. Discussion Notes During the visit, we discussed the patient's stress-related musculoskeletal pain and the importance of managing stress through lifestyle changes. We also reviewed the PSA test results, confirming that the levels remain undetectable and are not concerning. The patient will continue with current medications for hyperlipidemia and hypertension, and regular follow-up appointments will be scheduled to monitor these conditions. Patient Instructions - Continue taking prescribed medications for cholesterol and blood pressure. - Schedule regular follow-up appointments to monitor PSA levels and overall health. - Consider lifestyle modifications to manage stress, such as regular exercise or relaxation techniques. Orders: Orders Lipid Panel Today I10 - Essential (primary) hypertension Thyroid Stimulating Hormone Today I10 - Essential (primary) hypertension Complete Blood Count no Diff Today I10 - Essential (primary) hypertension Basic Metabolic Panel Today I10 - Essential (primary) hypertension Liver Panel Today I10 - Essential (primary) hypertension UA and rflx microscopic Today I10 - Essential (primary) hypertension
[2025-07-24 13:25] VITALS: BP 130/82; PULSE 81; TEMP 36.3; O2SAT 97; BMI 27.3
--- OUTSIDE RECORDS SUMMARY | 2025-07-24 14:11 | XMS_ITS | Encounter Summary ---
Author Organization [facility] Address [address] [place] [address] Phone Care Team Providers Care Vendor Specialist Name Role Phone Festus Velez MD, PhD Unavailable [phone] Christine Cisneros PA-C Unavailable [phone] Terese Vanessa MD Unavailable jesse Jose Richards MD Primary Care Provider [phone] Savannah Seymour MD Primary Care Provider [phone] Steven Jacobson NP Primary Care Provider + Owen Modi MD Primary Care Provid er Encounter Details Date Type Department Care Team (Latest Contact Info) Description 08/22/2018 Transcribe Orders [address] [place] [address] João Jarvis PA-C History of prostate cancer (Primary Dx) Social History Tobacco Use Types Packs/Day Years Used Date Smoking Tobacco: Never Smokeless Tobacco: Never Alcohol Use Standard Drinks/Week Comments Yes 2 (1 standard drink = 0.6 oz pur e alcohol) Sex and Gender Information Value Date Recorded Sex Assigned at Not on file Legal Sex Male 3:31 PM EST Gender Identity Not on file Sexual Orientation Not on file 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 Not on file Not on file Not on fi le documented as of this encounter Functional Status * Patient is deaf or has serious difficulty with hearing Answer Date of Assessment Author No 09/02/2016 12:11 PM EDT Kurtis Rincon PA * Patient is blind or has serious difficulty with seeing, even when wearing glasses Answer Date of Assessment Author No 09/02/2016 12:11 PM EDT Kurtis Rincon PA * Patient has serious difficulty walking or climbing stairs (5yr old or older) Answer Date of Assessment Author No 09/02/2016 12:11 PM EDT Kurtis Rincno PA * Patient has serious difficulty dressing or bathing (5yr old or older) Answer Date of Assessment Author No 09/02/2016 12:11 PM EDT Kurtis Rincon PA * Patient has serious difficulty doing errands alone such as visiting a doctor???s office or shopping, due to physical, mental, or emotional condition (15 years old or older) Answer Date of Assessment Author No 09/02/2016 12:11 PM EDT Kurtis Rincon PA documented as of this encounter Mental Status * Patient has serious difficulty concentrating, remembering, or making decisions due to physical, mental, or emotional condition Answer Entry Date Author No 09/02/2016 12:11 PM EDT Kurtis Rincon PA documented in this encounter Plan of Treatment Upcoming Encounters Date Type Department Care Team (Late st Contact Info) Description 09/03/2025 10:00 AM EDT Telemedicine Department of Urology [address] [place] [address] Shonda Carr, LOG CUT OFF SAWYER [address] [place] [phone] [email or web address] documented as of this encounter Results * PSA (screening) (08/22/2018 10:59 AM EDT) PSA <0.05 0 - 4.00 ng/mL [facility] Blood 08/22/2018 10:5 9 AM EDT 08/22/2018 11:02 AM EDT João Jarvis PA-C LAB BLOOD ORDERABLES Final Result [facility] [address] [place] [address] documented in this encounter Visit Diagnoses Diagnosis History of prostate cancer- Primary Personal history of malignant neoplasm of prostate documented in this encounter Care Teams Vendor Specialist Relationship Specialty Start Date End Date Jose Richards MD [address] [place] [address], [address] [place] [address] [email or web address] PCP - General Internal Medicine 02/15/18 03/26/19 Savannah Seymour MD [address] [place] [address] [address] [place] [address] [email or web address] PCP - General Internal Medicine 03/27/19 12/06/22 Steven Jacobson NP [address] [place] [address] [place] [address] PCP - General Nurse Practitioner 06/30/23 08/06/24 Owen Modi MD [address] [place] [id number] PCP - General Internal Medicine 08/07/24 Festus Velez MD, PhD [address] [place] [id number] [email or web address] Primary Oncologist Internal Medicine 02/16/16 Christine Cisneros PA-C [address] [place] [address] Orthopedics & Sports Medicine, [place] [address] [email or web address] Historical LMR Provider 09/15/17 Terese Vanessa MD Historical LMR Provider 09/15/17 2 documented as of this encounter Additional Source Comments The information contained in this document represents components of the legal health record. It is not the complete legal health record.[facility]
--- OUTSIDE RECORDS SUMMARY | 2025-07-24 14:11 | XMS_ITS | Encounter Summary ---
Author Organization [facility] Address [address] [place] [address] Phone Care Team Providers Care Digital Experience Manager Name Role Phone Festus Velez MD, PhD Unavailable [phone] Christine Cisneros PA-C Unavailable [phone] Terese Vanessa MD Unavailable [email or web address] Savannah Seymour MD Primary Care Provider Steven Jacobson NP Primary Care Provider + Owen Modi MD Primary Care Provid er Encounter Details Date Type Department Care Team (Late st Contact Info) Description 09/10/2019 Procedure Pass [address] [place] [address] Social History Tobacco Use Types Packs/Day Years [...] 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 Not on file Not [...] Rincon PA * Patient has serious difficulty dressing [...] AM EDT Telemedicine Department of Urology [address] [address] Shonda Carr CNP [address] [place] [id number] [email or web address] documented as of this encounter Visit Diagnoses Not on filedocumented in this encounter Care Teams Digital Experience Manager Relationship Specialty Start Date End Date Savannah Seymour MD [address] [place] [id number] PCP - General Internal Medicine 03/27/19 12/06/22 Steven Jacobson NP [address] [place] [address] [place] [address] PCP - General Nurse Practitioner 06/30/23 08/06/24 Owen Modi MD [address] [place] [id number] PCP - General Internal Medicine 08/07/24 Festus Velez MD, PhD [address] [place] [phone] [email or web address] Primary Oncologist Internal Medicine 02/16/16 Christine Cisneros PA-C [address] [place] [address] Orthopedics & Sports Medicine, [place] [address] [email or web address] Historical LMR Provider 09/15/17 Terese Vanessa MD [email or web address] Historical LMR Provider 09/15/17 2 documented as of this encounter Additional Source Comments The information contained in this document represents components of the legal health record. It is not the complete legal health record.[facility]
--- OUTSIDE RECORDS SUMMARY | 2025-07-24 14:11 | XMS_ITS | Encounter Summary ---
Author Organization [facility] Address [address] [facility] [address] [place] [address] Phone Care Team Providers Care Inspector Watch Assembly Name Role Phone Festus Velez MD, PhD Unavailable [phone] Christine Cisneros PA-C Unavailable [phone] Terese Vanessa MD Unavailable [email or web address] Jose Richards MD Primary Care Provider Savannah Seymour MD Primary Care Provider [phone] Steven Jacobson NP Primary Care Provider + Owen Modi MD Primary Care Provid er Encounter Details Date Type Department Care Team (Latest Contact Info) Description 03/20/2018 Transcribe Orders [address] [place] [address] Amber Multani MD [address] [place] [address] [email or web address] Prostate cancer (Primary Dx) Social History Tobacco Use [...] 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 on file Not [...] AM EDT Telemedicine Department of Urology [address] [id number] Shonda Carr CNP [address] [place] [id number] [email or web address] documented as of this encounter Results * PSA (screening) (03/20/2018 7:35 AM EDT) PSA <0.05 0 - 4.00 ng/mL [facility] Blood 03/20/2018 7:35 AM EDT 03/20/2018 7:36 AM EDT Amber Multani MD LAB BLOOD ORDERABLES Final Result [facility] [address] [place] [address] documented in this encounter Visit Diagnoses Diagnosis Prostate cancer- Primary Malignant neoplasm of prostate documented in this encounter Care Teams Inspector Watch Assembly Relationship Specialty Start Date End Date Jose Richards MD [address] [place] [address], [address] [place] [address] [email or web address] PCP - General Internal Medicine 02/15/18 03/26/19 Savannah Seymour MD [address] [place] [address] [email or web address] PCP - General Internal Medicine 03/27/19 12/06/22 Steven Jacobson, LIV [facility] [place] [address] PCP - General Nurse Practitioner 06/30/23 08/06/24 Owen Modi MD [address] [place] [address] PCP - General Internal Medicine 08/07/24 Festus Velez MD, PhD [address] [place] [address] [email or web address] Primary Oncologist Internal Medicine 02/16/16 Christine Cisneros PA-C [address] [place] [address] Orthopedics & Sports Medicine, [place] [address] Historical LMR Provider 09/15/17 Terese Vanessa MD [email or web address] Historical LMR Provider 09/15/17 2 documented as of this encounter Additional Source Comments The information contained in this document represents components of the legal health record. It is not the complete legal health record.[facility]
--- OUTSIDE RECORDS SUMMARY | 2025-07-24 14:11 | XMS_ITS | Clinical Summary ---
Author Organization [facility] Address [address] [place] [address] Phone Care Team Providers Care Manager Of Training And Development Name Role Phone Festus Velez MD, PhD Unavailable [phone] Christine Cisneros PA-C Unavailable Owen Modi MD Primary Care Provid er Allergies No known active allergies Medications lisinopril (PRINIVIL,ZESTRI L) 10 MG tablet Take 10 mg by mouth daily. Active rosuvastatin (CRESTOR) 5 MG tablet Take 1 tablet by mouth every morning. 06/15/2023 Active sildenafiL (REVATIO) 20 mg tabletIndication s:Prostate cancer Take 1 tablet (20 mg total) by mouth as directed. Take as needed prior to sexual activity. May take up to 100mg PRN 60 tablet 3 04/19/2025 Active Active Problems Problem Noted Date Diagnosed Date Family history of coronary artery disease 2017 Overview (02/07/2018): Mother CABG at 56yo. MGM 56yo Tinnitus 02/07/2018 Erectile dysfunction following radical prostatec richi 02/07/2018 Prostate cancer 08/31/2016 Overview (02/07/2018): Resected 2015 [facility] [place], no metastases, no chemo/xrt. PSA neg since then Resolved Problems Problem Noted Date Diagnosed Date Resolved Date Vitamin D deficiency 02/07/2018 023 Malignant neoplasm of prostate 08/09/2016 02/07/2018 Immunizations Immunization Administration Dates Next Due Influenza Quadrivalent Preservative Free IM 1004/2016 Family History Medical History Relation Comments Prostate cancer Father Coronary artery disease Maternal Grandfather Coronary artery disease Mother Ovarian cancer Mother Diabetes Paternal Grandfather Prostate cancer Paternal Uncle Colon cancer Neg Hx Relation Status Comments Daughter 1 Alive Daughter 2 Alive Father Alive Maternal Grandfather Maternal Grandmother Mother Paternal Grandfather Paternal Grandmother Paternal Uncle Sister Alive Social History Tobacco Use Types Packs/Day Years Used Date Smoking Tobacco: Never Smokeless Tobacco: Never Tobacco Cessation:Counseling Given: No Alcohol Use Standard Drinks/Week Comments Yes 2 [...] 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 on file Not on fi le Last Filed Vital Signs Vital Sign Reading Time Taken Comments Blood Pressure 157/92 09/01/2018 10:35 AM EDT Pulse 74 09/01/2018 10:35 AM EDT Temperature 36.6 C (97.9 F) 09/02/2016 11:00 AM EDT Respiratory Rate 26 09/02/2016 11:00 AM EDT Oxygen Saturation 97% 02/07/2018 2:01 PM EDT Inhaled Oxygen Concentration - - Weight 83.9 kg (185 lb) 09/17/2019 10:22 AM EDT Height 177.8 cm (5' 10 ) 09/17/2019 10:22 AM EDT Body Mass Index 26.54 09/17/2019 10:22 AM EDT Plan of Treatment Upcoming Encounters Date Type Department Care Team ([facility] st Contact Info) Description 09/03/2025 10:00 AM EDT Telemedicine Department of Urology [address] [address] Shonda Carr, UNDER CUTTING MACHINE OPERATOR [address] [place] [address] Health Maintenance Due Date Last Done Comments Adult Td,Tdap Booster 1969 DEPRESSION SCREENING 1981 HEPATITIS C SCREENING 1987 HIV ONE-TIME SCREENING (18-65 YEARS) 1987 PNEUMOCOCCAL VACCINES (50+ years) (1 of 2 - PCV) 1988 COLOGUARD 2014 COLONOSCOPY 2014 COLORECTAL CANCER SCREENING 2014 FIT TEST 2014 FOBT 2014 SIGMOIDOSCOPY 2014 VIRTUAL COLONOSCOPY 2014 CREATININE LEVEL 08/01/2020 08/01/2019, , 02/07/2018, Additional history exists POTASSIUM LEVEL 08/01/2020 08/01/2019, 04/28, 02/07/2018, Additional history exists LIPID PANEL 05/16/2024 05/16/2019, 02/07/2018 COVID-19 VACCINE ( season) 2024 08/26/2023, 09/23/2022, 11/28/2021, Additional history exists ZOSTER VACCINES Completed 08/23/2023, 05/05/2023 HEPATITIS A VACCINES Aged Out 08/20/2024, 08/19/2023, 07/19/2023 No longer eligible based on patient's age to complete this topic SMOKING STATUS SCREENING (Once After 26 Yrs) Completed 09/04/2024 HIB VACCINES Aged Out No longer eligi ble based on patient's age to complete this topic MENINGOCOCCAL VACCINES (ACWY) Aged Out No longer eligible based on patient's age to complete this topic MENINGOCOCCAL VACCINES (B) Aged Out N o longer eligible based on patient's age to complete this topic Medical Devices Not on file Procedures Procedure Name Priority Date/Time Associated Diagnosis Comments BASIC METABOLIC PANEL Routine 08/01/2019 9:35 AM EDT Hypertension, unspecified type LIPID PANEL Routine 05/16/2019 7:23 AM EDT Vitamin D deficiency Annual physical exam Elevated blood pressure, situational from Last 3 Months or Most Recently Relevant to Health Maintenance Results * (ABNORMAL) Basic metabolic panel (08/01/2019 9:35 AM EDT) SODIUM 137 133 - 146 mmol/L [facility] CHLORIDE 100 96 - 108 mmol/L [facility] POTASSIUM 4.2 3.3 - 5.1 mmol/L [facility] CO2 24 21 - 35 mmol/L [facility] BUN 13 6 - 19 mg/dL [facility] CREATININE 0.80 0.5 - 1.5 mg/dL [facility] GLUCOSE 106(H) 70 - 99 mg/dL [facility] CALCIUM 9.7 8.4 - 10.3 mg/dL [facility] EGFR 105 >59 mL/min/1.7 3m2 [facility] Comment:If patient is black, multiply result by 1.159. Estimated glomerular filtration rate calculated using the CKD-EPI equation. ANION GAP 17 10 - 20 mmol/L [facility] Blood 08/01/2019 9:35 AM EDT 08/01/2019 9:37 AM EDT us Savannah Seymour MD LAB BLOOD ORDERABLES Final R esult [address] [address] * (ABNORMAL) Lipid panel (05/16/2019 7:23 AM EDT) HDL 56 mg/dL [facility] Comment: Interpretation <40 mg/dL: Low HDL cholesterol (major risk factor for CHD) Greater than or equal to 60 mg/dL: High HDL cholesterol ( negative risk factor for CHD) HDL - cholesterol is affected by a number of factors, e.g. smoking, excerise, hormones, sex and age. CHOLESTEROL 230 0 - 240 mg/dL [facility] TRIGLYCERIDES 217(H) 30 - 160 mg/dL [facility] LDL 131(H) 50 - 129 mg/dL [facility] Comment: LDL levels in terms of risk for coronary heart disease: <100 mg/dL: Optimal 100-129 mg/dL: Near or above optimal 130-159 mg/dL: Borderline high 160-189 mg/dL: High >190 mg/dL: Very High CARDIAC RISK RATIO 4.1 3.4 - 5.0 [facility] Blood 05/16/2019 7:23 AM EDT 05/16/2019 7:30 AM EDT us Savannah Seymour MD LAB BLOOD ORDERABLES Final R esult [facility] [address] [place] [address] from Last 3 Months or Most Recently Relevant to Health Maintenance [facility] CHOICE [facility] CHOICE [facility] CHOICE [facility] CHOICE [facility] CHOICE [facility] CHOICE Advance Directives For more information, please contact: [phone] (9AM - 5PM [place]/[facility], Tuesday-Tuesday) Documents on File Type Date Recorded Patient Electrical Timing Device Calibrator Expl anation Healthcare Proxy 09/07/2016 9:44 AM Leola d on 08/31/2016 * Full Code (Presumed) (Latest Code Status on File) Date Activated Date Inactivated Comments 08/31/2016 10:59 AM 09/02/2016 3:55 PM Care Teams Manager Of Training And Development Relationship Specialty Start Date End Date Owen Modi MD [address] [place] [address] PCP - General Internal Medicine 08/07/24 Festus Velez MD, PhD [address] [place] [address] [email or web address] Primary Oncologist Internal Medicine 02/16/16 Christine Cisneros PA-C [address] [place] [address] Orthopedics & Sports Medicine, [place] [address] [email or web address] Historical LMR Provider 09/15/17 Additional Source Comments The information contained in this document represents components of the legal health record. It is not the complete legal health record.[facility]
--- OUTSIDE RECORDS SUMMARY | 2025-07-24 14:11 | XMS_ITS | Encounter Summary ---
Author Organization [facility] Address [address] [place] [address] Phone Care Team Providers Care Tire Recapper Name Role Phone Festus Velez MD, PhD Unavailable [phone] Christine Cisneros PA-C Unavailable [phone] Terese Vanessa MD Unavailable [email or web address] Savannah Seymour MD Primary Care Provider Steven Jacobson NP Primary Care Provider + Owen Modi MD Primary Care Provid er Encounter Details Date Type Department Care Team (Latest Contact Info) Description 03/27/2020 Transcribe Orders [address] [place] [address] Amber Multani MD [address] [place] [address] [email or web address] Malignant neoplasm of prostate (Primary Dx) Social History Tobacco Use Types [...] 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 on file Not [...] AM EDT Telemedicine Department of Urology [address] [address] Shonda Carr CNP [address] [place] [phone] [email or web address] documented as of this encounter Results * PSA (screening) (03/27/2020 2:48 PM EDT) PSA <0.05 0 - 4.00 ng/mL [facility] Blood 03/27/2020 2:48 PM EDT 03/27/2020 2:50 PM EDT us Amber Multani MD LAB BLOOD ORDERABLES Final Result [address] [address] documented in this encounter Visit Diagnoses Diagnosis Malignant neoplasm of prostate- Primary documented in this encounter Care Teams Tire Recapper Relationship Specialty Start Date End Date Savannah Seymour MD [address] [place] [address] 1 [place] [address] [email or web address] PCP - General Internal Medicine 03/27/19 12/06/22 Steven Jacobson NP [address] [place] [address] [place] [address] PCP - General Nurse Practitioner 06/30/23 08/06/24 Owen oMdi MD [address] [place] [address] PCP - General Internal Medicine 08/07/24 Festus Velez MD, PhD [address] [place] [address] [email or web address] Primary Oncologist Internal Medicine 02/16/16 Christine Cisneros PA-C [address] [place] [address] Orthopedics & Sports Medicine, [place] [address] [email or web address] Historical LMR Provider 09/15/17 Terese Vanessa MD [email or web address] Historical LMR Provider 09/15/17 2 documented as of this encounter Additional Source Comments The information contained in this document represents components of the legal health record. It is not the complete legal health record.[facility]
--- OUTSIDE RECORDS SUMMARY | 2025-07-24 14:12 | XMS_ITS | Encounter Summary ---
Author Organization [facility] Address [address] [facility] [address] [place] [address] Phone Care Team Providers Care Flap Curer Name Role Phone Festus Velez MD, PhD Unavailable [phone] Christine Cisneros PA-C Unavailable [phone] Terese Vanessa MD Unavailable [email or web address] Savannah Seymour MD Primary Care Provider Steven Jacobson NP Primary Care Provider + Owen Modi MD Primary Care Provid er Encounter Details Date Type Department Care Team (Late st Contact Info) Description 08/01/2019 Transcribe Orders [address] [place] [address] Savannah Seymour MD [address] [place] [address] Hypertension, unspecified type (Primary Dx) Social History Tobacco Use Types [...] 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 on 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 [...] AM EDT Telemedicine Department of Urology 165 [place] [address] Shonda Carr, MARKETING OPERATIONS SPECIALIST 165 [place] [address] [email or web address] documented as of this encounter Results * (ABNORMAL) Basic metabolic panel (08/01/2019 9:35 AM EDT) SODIUM 137 133 - 146 mmol/L [facility] CHLORIDE 100 96 - 108 mmol/L [facility] POTASSIUM 4.2 3.3 - 5.1 mmol/L [facility] CO2 24 21 - 35 mmol/L [facility] BUN 13 6 - 19 mg/dL [facility] CREATININE 0.80 0.5 - 1.5 mg/dL [facility] GLUCOSE 106(H) 70 - 99 mg/dL [facility] CALCIUM 9.7 8.4 - 10.3 mg/dL [facility] EGFR 105 >59 mL/min/1.7 3m2 [facility] Comment:If patient is black, multiply result by 1.159. Estimated glomerular filtration rate calculated using the CKD-EPI equation. ANION GAP 17 10 - 20 mmol/L [facility] Blood 08/01/2019 9:35 AM EDT 08/01/2019 9:37 AM EDT us Savannah Seymour MD LAB BLOOD ORDERABLES Final R esult [address] [address] documented in this encounter Visit Diagnoses Diagnosis Hypertension, unspecified type- Primary documented in this encounter Care Teams Flap Curer Relationship Specialty Start Date End Date Savannah Seymour MD [address] [place] [address] [email or web address] PCP - General Internal Medicine 03/27/19 12/06/22 Steven Jacobson NP [address] [place] [address] [place] [address] PCP - General Nurse Practitioner 06/30/23 08/06/24 Owen Modi MD [address] [place] [address] PCP - General Internal Medicine 08/07/24 Festus Velez MD, PhD [address] [place] [address] [email or web address] Primary Oncologist Internal Medicine 02/16/16 Christine Cisneros PA-C [address] [place] [address] Orthopedics & Sports Medicine, [facility] [place] [address] [email or web address] Historical LMR Provider 09/15/17 Terese Vanessa MD [email or web address] Historical LMR Provider 09/15/17 2 documented as of this encounter Additional Source Comments The information contained in this document represents components of the legal health record. It is not the complete legal health record.[facility]
--- OUTSIDE RECORDS SUMMARY | 2025-07-24 14:12 | XMS_ITS | Encounter Summary ---
Author Organization [facility] Address [address] [facility] [address] [place] [address] Phone Care Team Providers Care Wildlife Policy Professional Name Role Phone Festus Velez MD, PhD Unavailable [phone] Christine Cisneros PA-C Unavailable [phone] Terese Vanessa MD Unavailable [email or web address] Savannah Seymour MD Primary Care Provider [phone] Steven Jacobson NP Primary Care Provider + Owen Modi MD Primary Care Provid er Reason for Referral * MRI/CAT Scan - Closed Specialty Diagnoses / Procedures Referred By Contchinedu t Referred To Contact Radiology Diagnoses Right shoulder pain, unspecified chronicity Procedures MRI Shoulder (Right) Ralf Dunn DO Phone: tel: fax: [email or web address] Referral ID Status Reason Start Date Expiration Date Visits Re quested Visits Authorized [id number] Closed 09/07/2019 10/06/2019 1 1 Encounter Details Date Type Department Care Team (Late st Contact Info) Description 09/10/2019 Ancillary Orders [facility] Department [address] [place] [address] Ralf Dunn, DO [address] [place] [address] [email or web address] Right shoulder pain, unspecified chronicity Social History Tobacco Use Types Packs/Day Years [...] 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 Findings consistent with tendinosis of the supraspinatus and infraspinatus tendons. Questionable tiny rim rent tear involving the articular surface of the distal supraspinatus tendon. No evidence of full-thickness rotator cuff tendon tears. 2. Degenerative changes and evidence of synovitis at the acromioclavicular joint. 3. Small amount of fluid in the subacromial/subdeltoid bursa probably due to to bursitis. POS - [id number] Narrative 09/18/2019 9:30 AM EDT HISTORY: Persistent pain and limited range of motion since fall on 05/28/2019. Patient states he fractured his right humerus during the fall. COMPARISON: None. TECHNIQUE: Exam performed on a 1.5 Najma high-field MRI scanner. Axial T1 and proton density with fat suppression, oblique coronal proton density with fat suppression and T2 with fat suppression, oblique sagittal T1 and T2 with fat suppression sequences were obtained. MRI SHOULDER FINDINGS: Rotator cuff tendons: There is increased T2-weighted signal within the supraspinatus tendon. The vast majority of this is less T2 hyperintense and fluid. There is a punctate area of T2 hyperintensity closely associated with articular surface fibers distally which is closer to fluid signal intensity. Increased T2 weighted signal within the distal infraspinatus tendon which is less hyperintense than fluid. Subscapularis tendon intact. Biceps tendon: Biceps tendon is intact. Rotator cuff muscles: No significant abnormalities. Glenoid labrum: Grossly intact. Bursae: Small amount of fluid within the subacromial/subdeltoid bursa. Joints: Moderate hypertrophic change at the acromioclavicular joint. Small amount of fluid within the acromioclavicular joint. Mild adjacent soft tissue edema. Bones: No evidence of fractures or contusions. No suspicious marrow signal abnormalities. Other soft tissues: No evidence of paravertebral masses. Procedure Note João Arevalo MD - 09/18/2019 HISTORY: Persistent pain and limited range of motion since fall on05/28/2019. Patient states he fractured his right humerus during the fall. COMPARISON: None. TECHNIQUE: Exam performed on a 1.5 Najma high-field MRI scanner. Axial T1and proton density with fat suppression, oblique coronal proton densitywith fat suppression and T2 with fat suppression, oblique sagittal T1 andT2 with fat suppression sequences were obtained. MRI SHOULDER FINDINGS: Rotator cuff tendons: There is increased T2-weighted signal within thesupraspinatus tendon. The vast majority of this is less T2 hyperintenseand fluid. There is a punctate area of T2 hyperintensity closelyassociated with articular surface fibers distally which is closer to fluidsignal intensity. Increased T2 weighted signal within the distalinfraspinatus tendon which is less hyperintense than fluid. Subscapularistendon intact. Biceps tendon: Biceps tendon is intact. Rotator cuff muscles: No significant abnormalities. Glenoid labrum: Grossly intact. Bursae: Small amount of fluid within the subacromial/subdeltoid bursa. Joints: Moderate hypertrophic change at the acromioclavicular joint.Small amount of fluid within the acromioclavicular joint. Mild adjacentsoft tissue edema. Bones: No evidence of fractures or contusions. No suspicious marrowsignal abnormalities. Other soft tissues: No evidence of paravertebral masses. IMPRESSION: 1. Findings consistent with tendinosis of the supraspinatus andinfraspinatus tendons. Questionable tiny rim rent tear involving thearticular surface of the distal supraspinatus tendon. No evidence offull-thickness rotator cuff tendon tears. 2. Degenerative changes and evidence of synovitis at the acromioclavicularjoint. 3. Small amount of fluid in the subacromial/subdeltoid bursa probably dueto to bursitis. POS - [id number] Ralf Dunn DO IM MR EXTREMITY Final Resul t documented in this encounter Visit Diagnoses Diagnosis Right shoulder pain, unspecified chronicity Right shoulder pain, unspecified chronicity documented in this encounter Care Teams Wildlife Policy Professional Relationship Specialty Start Date End Date Savannah Seymour MD [address] [place] [address] [email or web address] PCP - General Internal Medicine 03/27/19 12/06/22 Steven Jacobson NP [address] [place] [address] [place] [address] PCP - General Nurse Practitioner 06/30/23 08/06/24 Owen Modi MD [address] [place] [address] PCP - General Internal Medicine 08/07/24 Festus Velez MD, PhD [address] [place] [address] [email or web address] Primary Oncologist Internal Medicine 02/16/16 Christine Cisneros PA-C [address] [place] [address] Orthopedics & Sports Medicine, [place] [address] [email or web address] Historical LMR Provider 09/15/17 Terese Vanessa MD [email or web address] Historical LMR Provider 09/15/17 2 documented as of this encounter Additional Source Comments The information contained in this document represents components of the legal health record. It is not the complete legal health record.[facility]
--- OUTSIDE RECORDS SUMMARY | 2025-07-24 14:12 | XMS_ITS | Encounter Summary ---
Author Organization [facility] Address [address] [place] [address] Phone Care Team Providers Care Flask Carrier Name Role Phone Festus Velez MD, PhD Unavailable [phone] Christine Cisneros PA-C Unavailable [phone] Terese Vanessa MD Unavailable [email or web address] Faizan Montgomery MD Primary Care Provider [phone] Jose Richards MD Primary Care Provider [phone] Savannah Seymour MD Primary Care Provider Steven Jacobson NP Primary Care Provider + Owen Modi MD Primary Care Provid er Encounter Details Date Type Department Care Team (Latest Contact Info) Description 12/26/2017 Transcribe Orders [address] [place] [address] João Jarvis PA-C History of prostate cancer [...] 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 Not on file Not [...] AM EDT Telemedicine Department of Urology [address] [address] Shonda Carr CNP [address] [place] [phone] [email or web address] documented as of this encounter Results * PSA (screening) (12/26/2017 8:18 AM EST) PSA <0.05 0 - 4.00 ng/mL [facility] Blood 12/26/2017 8:18 AM EST 12/26/2017 8:20 AM EST us João Jarvis PA-C LAB BLOOD ORDERABLES Final Result [facility] [address] [place] [address] documented in this encounter Visit Diagnoses Diagnosis History of prostate cancer- Primary Personal history of malignant neoplasm of prostate documented in this encounter Care Teams Flask Carrier Relationship Specialty Start Date End Date Faizan Montgomery MD [address] [place] [address], [address] [place] [address] [email or web address] PCP - General Family Medicine 12/26/17 02/14/18 Jose Richards MD [address] [place] [address], [address] [place] [address] PCP - General Internal Medicine 02/15/18 03/26/19 Savannah Seymour MD [address] [place] [phone] [email or web address] PCP - General Internal Medicine 03/27/19 12/06/22 Steven Jacobson NP [address] [place] [address] [place] [address] PCP - General Nurse Practitioner 06/30/23 08/06/24 Owen Modi MD [address] [place] [phone] PCP - General Internal Medicine 08/07/24 Festus Velez MD, PhD [address] [place] [phone] [email or web address] Primary Oncologist Internal Medicine 02/16/16 Christine Cisneros PA-C [address] [place] [address] Orthopedics & Sports Medicine, [facility] [place] [address] Historical LMR Provider 09/15/17 Terese Vanessa MD [email or web address] Historical LMR Provider 09/15/17 2 documented as of this encounter Additional Source Comments The information contained in this document represents components of the legal health record. It is not the complete legal health record.[facility]
--- OUTSIDE RECORDS SUMMARY | 2025-07-24 14:12 | XMS_ITS | Encounter Summary ---
Author Organization [facility] Address [address] [place] [address] Phone Care Team Providers Care Plaster Maker Name Role Phone Festus Velez MD, PhD Unavailable [phone] Christine Cisneros PA-C Unavailable Terese Vanessa MD Unavailable [email or web address] Savannah Seymour MD Primary Care Provider Steven Jacobson NP Primary Care Provider + Owen Modi MD Primary Care Provid er Encounter Details Date Type Department Care Team (Latest Contact Info) Description 03/27/2019 Transcribe Orders [address] [place] [address] Amber Multani MD [address] [place] [phone] [email or web address] Malignant neoplasm of prostate (Primary Dx) Social [...] 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 Blood 03/27/2019 3:45 PM EDT 03/27/2019 3:49 PM EDT us Amber Multani MD LAB BLOOD ORDERABLES Final Result [address] [address] documented in this encounter Visit Diagnoses Diagnosis Malignant neoplasm of prostate- Primary documented in this encounter Care Teams Plaster Maker Relationship Specialty Start Date End Date Savannah Seymour MD [address] [place] [address] [address] [place] [address] [email or web address] PCP - General Internal Medicine 03/27/19 12/06/22 Steven Jacobson NP [address] [place] [address] [place] [address] PCP - General Nurse Practitioner 06/30/23 08/06/24 Owen Modi MD [address] [place] [address] PCP - General Internal Medicine 08/07/24 Festus Velez MD, PhD [address] [place] [address] [email or web address] Primary Oncologist Internal Medicine 02/16/16 Christine Cisneros PA-C [address] [place] [address] Orthopedics & Sports Medicine, [place] [address] [email or web address] Historical LMR Provider 09/15/17 Terese Vanessa MD Historical LMR Provider 09/15/17 2 documented as of this encounter Additional Source Comments The information contained in this document represents components of the legal health record. It is not the complete legal health record.[facility]
== END ==
LOC: HO.HMCH 13:22
PROVIDERS: PCP Internal Medicine; Visit Provider Internal Medicine
DX: I10 Essential (primary) hypertension (principal); Z00.00 Encounter for general adult medical examination without abnormal findings

== ENCOUNTER 2025-11-04 10:11 | Outpatient (AMB) | payer OTHER, SELFPAY ==
--- NOTE | 2025-11-04 10:23 | MHC.OFFVIS ---
Vital Signs 11/04/25 10:29 Height 5 ft 10 in Weight 185 lb BMI 26.5 BP 148/88 H Blood Pressure Location Lt brachial Position Sitting Pulse 60 Pulse Source Pulse Oximeter Pulse Oximetry (%) 97 Oxygen Delivery Method Room Air Intake Visit Reasons: Recall colo screening. [facility] 2022. Intake Note: Est pt for recall colo screening q3 years. Last in 2021 w/ Dr. Veloz. Hx of GERD. CC: Pt denies any current GI sx or concerns. Pt denies any presence of GERD in reference to prior hx. Avionics Safety Inspector Required: No Accompanied by: Self / Same As Patient Allergies No Known Allergies Allergy (Verified 11/04/25 10:23) HPI HPI Recall colo screening. [facility] 2022.: Details: LAST VISIT Tubular adenoma Two tubular adenoma and once is I will serrated polyps found on colonoscopy. Patient will need to repeat colonoscopy in 3 years, sooner if clinically appropriate. Patient is aware that he must be to his blood relatives about early colorectal screening. Diverticulosis Diverticulosis found in the entire colon, scattered, small mouthed. Discussed with patient the importance of increasing fiber in his diet. MiraLax sent to pharmacy. Status post colonoscopy Patient denies any ill effects from the prep, anesthesia or procedure itself. Patient will need repeat colonoscopy in 3 years, tubular adenoma found and sessile serrated polyp. Patient will follow-up with us on as-needed basis. He is agreeable to this plan and verbalizes understanding of instructions. He was given the opportunity to ask questions and all questions answered. ? Thank you for allowing me to participate in his care Plan Medications New polyethylene glycol 3350 (Miralax) 17 grams PO DAILY 510 grams 2RF TODAY'S VISIT Patient is here today to go over colonoscopy. History of tubular adenoma in the past. Last office visit in 2022. Patient denies any issues with anesthesia in the past. No history of sleep apnea. Patient is not on any anticoagulation medication. Patient denies any cardiac or respiratory symptoms. Patient denies any acid reflux. Patient denies any GI concerning symptoms. [facility] Medical History Familial hypercholesterolemia Central stenosis of spinal canal Diverticulosis Tubular adenoma HTN (hypertension) Acid reflux Surgical History History of colonoscopy (~11/26/22) History of prostate surgery Hx of lumbar discectomy Family History Brother Brain aneurysm Social History Household Members: Spouse Household Members Other:: Daughter Housing: House Alcohol intake: current Alcohol intake frequency: a few times a month Alcohol type: beer Comment: tylenol given Patient Tobacco Use Status: Never used Tobacco e-Cigarette/Vaping Use: Never Used Second Hand Smoke Exposure: No service: No Current occupational status: employed Current occupation: [employer] Current occupational exposures/hazards: Yes Cognitive needs: No Hearing needs: No Vision needs: Yes (glasses) Review of Systems Const Denies weight gain and Denies weight loss ENT Reports no additional complaints, Denies dysphagia and Denies odynophagia Card Reports no additional complaints Resp Reports no additional complaints GI Denies abdominal pain, Denies belching, Denies melena, Denies bloating, Denies change in bowel habits, Denies dysphagia, Denies excessive flatus, Denies dyspepsia, Denies heartburn, Denies diarrhea, Denies loose stools, Denies nausea, Denies odynophagia and Denies vomiting Reports no additional complaints Musc Reports no additional complaints Neuro Reports no additional complaints Psych Reports no additional complaints Endo Reports no additional complaints Physical Exam Vital Signs: Last Vital Signs Pulse 60 11/04/25 10:29 BP 148/88 H 11/04/25 10:29 Pulse Ox 97 11/04/25 10:29 Oxygen Delivery Method Room Air 11/04/25 10:29 BMI result Body Mass Index 26.5 Const General: healthy appearing, no acute distress and well developed Nutritional Appearance: well nourished Orientation/consciousness: patient oriented x3 Resp Effort & Inspection: normal respiratory effort, able to speak in complete sentences, no tracheal deviation and symmetric chest movement Auscultation: clear to auscultation bilaterally Cardio Rate: regular rate GI Inspection: Yes normal to inspection and No distended Palpation (GI): Soft to palpation, not firm, nontender and No hepatosplenomegaly present Auscultation: normal bowel sounds General: Yes no CVA tenderness Back/Spine/Pelvis Back: no CVA tenderness Skin General skin exam: elasticity normal, turgor normal and dry skin Neuro General: patient oriented x3 Psych Appearance: grossly normal Mental Status: mental status grossly normal Assessment & Plan Assessment & Plan (1) Screening for colon cancer: Code(s): Z12.11 - Encounter for screening for malignant neoplasm of colon Category: Medical (2) Diverticulosis: Code(s): K57.90 - Diverticulosis of intestine, part unspecified, without perforation or abscess without bleeding Category: Medical (3) Tubular adenoma: Code(s): D36.9 - Benign neoplasm, unspecified site Category: Medical Plan Patient denies any cardiac or respiratory symptoms. Patient denies any acid reflux. Reports moving his bowels without any issues. What to expect before during and after procedure discussed with patient. Stressed the importance of good bowel prep and clear liquid diet day before procedure. Patient will be seen after the procedure, sooner on as needed basis. He is agreeable to this plan and verbalizes understanding of instructions. He was given the opportunity to ask questions and all questions answered. Thank you for allowing me to participate in his care Orders: Referrals GI Procedure Notification Z12.11 - Encounter for screening for malignant neoplasm of colon Medications: New polyethylene glycol 3350 (Miralax) As directed by gastroenterology department at [facility] 238 grams PO ONCE 238 grams 0RF Z12.11 - Encounter for screening for malignant neoplasm of colon bisacodyl (Dulcolax (bisacodyl)) take 4 tabs at noon the day before your colonoscopy 20 mg (4 x 5 mg) PO ONCE 4 tabs 0RF constipation 1 day Z12.11 - Encounter for screening for malignant neoplasm of colon Coding Level of Care Code Est Pt Level 3 (34059) Diagnoses Screening for colon cancer Z12. Diverticulosis K57.90 Tubular adenoma D36.9 Time Spent (min) 30 Comment 20 minutes spent with patient and additional 10 minutes spent reviewing his records
[2025-11-04 10:29] VITALS: BP 148/88; PULSE 60; O2SAT 97; BMI 26.5
== END 2025-11-04 10:59 | disposition home or self-care (01) ==
LOC: HO.HGI 10:11
PROVIDERS: PCP Internal Medicine; Visit Provider Nurse Practitioner Family
DX: Z01.818 Encounter for other preprocedural examination (principal); Z12.11 Encounter for screening for malignant neoplasm of colon; Z86.0101 Personal history of adenomatous and serrated colon polyps; K57.90 Diverticulosis of intestine, part unspecified, without perforation or abscess without bleeding
CPT/HCPCS: 99213